=== PATIENT | female | born 1930 | race African-American/Black ===

== ENCOUNTER 2017-01-07 16:07 | Observation (INO) | payer MEDICARE, OTHER ==
[~2017-01-07] VITALS: Ht 167.6 cm; Wt 56.0 kg
[~2017-01-07 16:07] MED LIST: ATOR1TAB18 PO; BENA25CA2 PO; COMB0.2S EACH EYE; DORZ2SOL EACH EYE; LISI20TA PO; LUMI0.01 EACH EYE; NAME10TA PO; NIAC50TA4 PO; OMEP20TA PO; RIVA4.6T T-DERMAL; ZETI10TA5 PO
[2017-01-07 16:19] VITALS: BP 181/79; PULSE 98; RESP 17; TEMP 97.8; O2SAT 100
[2017-01-07 16:23] VITALS: PULSE 98; RESP 17; O2SAT 99
[2017-01-07] MEDS ORDERED: SODIUM CHLORIDE 0.9% FLUSH 5 ML FLUSH IVF PRN (16:30)
[2017-01-07] MEDS ORDERED: SODIUM CHLORID 0.9% 500 ML INJ 500 ML IV ONE (16:30)
[2017-01-07] MEDS ORDERED: CLON0.5T PO (16:49)
--- NOTE | 2017-01-07 17:10 | RADRPT ---
EXAM DATE/TIME: 01/07/2017 16:41 [facility] COMPARISON: No previous studies available for comparison. INDICATIONS : Evaluate for stroke,syncopal episode. RADIATION DOSE: 56.78 CTDIvol (mGy) MEDICAL HISTORY : Alzheimer's Hypertension. SURGICAL HISTORY : Appendectomy. Cholecystectomy.Lumpectomy ENCOUNTER: Initial ACUITY: 1 day PAIN SCALE: 0/10 LOCATION: cranial TECHNIQUE: Multiple contiguous axial images were obtained of the head. Using automated exposure control and adj ustment of the mA and/or kV according to patient size, radiation dose was kept as low as reasonably a chievable to obtain optimal diagnostic quality images. FINDINGS: CEREBRUM: The ventricles are normal for age. No evidence of midline shift, mass lesion, hemorrhage or acute in farction. No extra-axial fluid collections are seen. POSTERIOR FOSSA: The cerebellum and brainstem are intact. The 4th ventricle is midline. The cerebellopontine angle i s unremarkable. EXTRACRANIAL: The visualized portion of the orbits is intact. SKULL: The calvaria is intact. No evidence of skull fracture. CONCLUSION: Negative noncontrast head CT. Juno King MD on January 07, 2017 at 17:08 Board Certified Radiologist. This report was verified electronically.
[2017-01-07 17:29] LABS: AUTOMATED NEUTROPHIL # 3.5 TH/MM3 (1.8-7.7); BASOPHIL # 0.1 TH/MM3 (0-0.2); BASOPHIL % 1.2 % (0.0-2.0); EOSINOPHIL # 0.1 TH/MM3 (0-0.4); EOSINOPHIL % 1.1 % (0.0-4.0); HEMATOCRIT 31.3 % (35.0-46.0); HEMO FLAGS DIFF FINAL; LYMPH % 32.5 % (9.0-44.0); LYMPHOCYTE # 1.9 TH/MM3 (1.0-4.8); MEAN CELL VOLUME 88.4 FL (80.0-100.0); MEAN CORPUSCULAR HEMOGLOBIN 29.7 PG (27.0-34.0); MEAN CORPUSCULAR HGB CONC 33.6 % (32.0-36.0); NEUT % 58.2 % (16.0-70.0); PLATELET COUNT 375 TH/MM3 (150-450); RED BLOOD COUNT 3.53 MIL/MM3 (4.00-5.30); RED CELL DISTRIBUTION WIDTH 15.1 % (11.6-17.2)
[2017-01-07 17:48] LABS: INTERNATIONAL NORMALIZED RATIO 1.1 RATIO; PROTHROMBIN TIME - PATIENT 11.8 SEC (9.8-11.6)
[2017-01-07 18:04] LABS: ANION GAP 14 MEQ/L (5-15); BICARBONATE 24.1 MEQ/L (21.0-32.0); BLOOD UREA NITROGEN 9 MG/DL (7-18); CHLORIDE 98 MEQ/L (98-107); CREATINE KINASE 119 U/L (26-192); GLOMERULAR FILTRATION RATE 77 ML/MIN (>89); SODIUM (NA) 136 MEQ/L (136-145)
[2017-01-07 18:06] LABS: POTASSIUM 3.4 MEQ/L (3.5-5.1)
--- NOTE | 2017-01-07 18:11 | PD ---
HPI Chief Complaint: Syncope/Near-Syncope Time Seen by Provider: 16:22 Travel History International Travel<30 days: No Contact w/Intl Traveler<30days: No Traveled to known affect area: No History of Present Illness HPI 86-year-old female came to the emergency room with history of a syncopal episode at a supermarket. Patient says that she was picking up something and she does not remember what happened. However the bystanders witnessed this found her unconscious on the ground and called 911. Currently she is not complaining of anything and says she feels okay. Vital signs are stable. Denies of any nausea or vomiting. Denies of any chest pain or headache. PFSH Past Medical History Narrative Medical List of her past medical, surgical, social and family history is reviewed from the nursing note. Anxiety: Yes Cancer: No Cardiovascular Problems: Yes High Cholesterol: Yes Diabetes: No Diminished Hearing: Yes Endocrine: No Gastrointestinal Disorders: Yes (ACID REFLUX) Genitourinary: No Hiatal Hernia: No Hypertension: Yes Immune Disorder: No Medical other: Yes (ELEVATED CHOLESTEROL) Musculoskeletal: No Psychiatric: Yes (MILD DEPRESSION, EARLY ALZHIMERS ) Respiratory: No Thyroid Disease: No Tetanus Vaccination: < 5 Years Influenza Vaccination: Yes ?: Not Past Surgical History AICD: No Body Medical Devices: NONE Cardiac Surgery: No Cholecystectomy: Yes Ear Surgery: No Endocrine Surgery: No Eye Surgery: No Gynecologic Surgery: Yes (HYSTERECTOMY ) Hysterectomy: Yes Joint Replacement: No Oral Surgery: No Pacemaker: No Thoracic Surgery: Yes (LUMPECTOMY (BENIGN) OF THE LEFT BREAST) Other Surgery: Yes Social History Alcohol Use: No Tobacco Use: No Substance Use: No Allergies-Medications (Allergen,Severity, Reaction): Coded Allergies: No Known Allergies (Verified , 09/08/16) Comments No known drug allergies. Reported Meds & Prescriptions Reported Meds & Active Scripts Active Reported Clonazepam 0.5 Mg Tab 0.5 Mg PO HS Dorzolamide Opth Drops (Dorzolamide HCl) 2% Soln 1 Drop EACH EYE BID Lumigan Opth Drops (Bimatoprost) 0.01% Soln 1 Drop EACH EYE HS Combigan Opth Drops (Brimonidine-Timolol Opth Drops) 0.2-0.5% Soln 1 Drop EACH EYE BID Exelon Patch (Rivastigmine) 4.6 mg/24 hr Patch 1 Patch T-DERMAL DAILY Niacin 50 Mg Tab 50 Mg PO DAILY Lisinopril-Hctz 20-12.5 Mg Tab 1 Tab PO DAILY Atorvastatin (Atorvastatin Calcium) 80 Mg Tab 80 Mg PO HS Namenda (Memantine) 10 Mg Tab 20 Mg PO DAILY Zetia (Ezetimibe) 10 Mg Tab 10 Mg PO DAILY Narrative Medication List of home medications reviewed from the nursing note. Review of Systems Except as stated in HPI: all other systems reviewed are Neg Physical Exam Narrative GENERAL: Awake, alert, elderly, frail SKIN: Warm and dry. HEAD: Atraumatic. Normocephalic. EYES: Pupils equal and round. No scleral icterus. No injection or drainage. ENT: No nasal bleeding or discharge. Mucous membranes pink and moist. NECK: Trachea midline. No JVD. CARDIOVASCULAR: Regular rate and rhythm. No murmur appreciated. RESPIRATORY: No accessory muscle use. Clear to auscultation. Breath sounds equal bilaterally. GASTROINTESTINAL: Abdomen soft, non-tender, nondistended. Hepatic and splenic margins not palpable. MUSCULOSKELETAL: No obvious deformities. No clubbing. No cyanosis. No edema. NEUROLOGICAL: Awake and alert. No obvious cranial nerve deficits. Motor grossly within normal limits. Normal speech. PSYCHIATRIC: Appropriate mood and affect; insight and judgment normal. Data Data Last Documented VS Vital Signs Date Time Temp Pulse Resp B/P Pulse Ox O2 Delivery O2 Flow Rate FiO2 01/07/17 18:15 96 17 156/80 99 Room Air 01/07/17 16:19 97.8 Orders Electrocardiogram (01/07/17 16:22) Prothrombin Time / Inr (Pt) (01/07/17 16:22) Complete Blood Count With Diff (01/07/17 16:22) Basic Metabolic Panel (Bmp) (01/07/17 16:22) Creatine Kinase (Cpk) (01/07/17 16:22) Troponin I (01/07/17 16:22) Urinalysis - C+S If Indicated (01/07/17 16:22) Ct Brain W/O Iv Contrast(Rout) (01/07/17 16:22) Ecg Monitoring (01/07/17 16:22) Iv Access Insert/Monitor (01/07/17 16:22) Oximetry (01/07/17 16:22) Sodium Chloride 0.9% Flush (Ns Flush) (01/07/17 16:30) Type And Screen (01/07/17 16:22) Sodium Chlorid 0.9% 500 Ml Inj (Ns 500 M (01/07/17 16:30) Potassium Chloride Eff (K-Lyte Cl Eff) (01/07/17 18:15) Admit Order (Ed Use Only) (01/07/17 18:59) Labs Laboratory Tests Test 01/07/17 16:40 White Blood Count 6.0 TH/MM3 Red Blood Count 3.53 MIL/MM3 Hemoglobin 10.5 GM/DL Hematocrit 31.3 % Mean Corpuscular Volume 88.4 FL Mean Corpuscular Hemoglobin 29.7 PG Mean Corpuscular Hemoglobin 33.6 % Concent Red Cell Distribution Width 15.1 % Platelet Count 375 TH/MM3 Mean Platelet Volume 9.7 FL Neutrophils (%) (Auto) 58.2 % Lymphocytes (%) (Auto) 32.5 % Monocytes (%) (Auto) 7.0 % Eosinophils (%) (Auto) 1.1 % Basophils (%) (Auto) 1.2 % Neutrophils # (Auto) 3.5 TH/MM3 Lymphocytes # (Auto) 1.9 TH/MM3 Monocytes # (Auto) 0.4 TH/MM3 Eosinophils # (Auto) 0.1 TH/MM3 Basophils # (Auto) 0.1 TH/MM3 CBC Comment DIFF FINAL Differential Comment Prothrombin Time 11.8 SEC Prothromb Time International 1.1 RATIO Ratio Sodium Level 136 MEQ/L Potassium Level 3.4 MEQ/L Chloride Level 98 MEQ/L Carbon Dioxide Level 24.1 MEQ/L Anion Gap 14 MEQ/L Blood Urea Nitrogen 9 MG/DL Creatinine 0.85 MG/DL Estimat Glomerular Filtration 77 ML/MIN Rate Random Glucose 90 MG/DL Calcium Level 8.7 MG/DL Total Creatine Kinase 119 U/L Troponin I LESS THAN 0.02 NG/ML Blood Type B POSITIVE Antibody Screen NEGATIVE Blood Bank Comment MDM Medical Decision Making Medical Screen Exam Complete: Yes Emergency Medical Condition: Yes Medical Record Reviewed: Yes Interpretation(s) Twelve-lead EKG was reviewed by me. Normal sinus rhythm, left axis deviation, nonspecific ST-T wave changes. Heart rate of 97 bpm. Differential Diagnosis Syncope, ACS, cardiac arrhythmia Narrative Course 6:10 PM blood test results are back. Her potassium is slightly low. I have ordered for placement. Given the fact that she is 86 years old and had a syncopal episode without any warning I would like to admit her to rule out any ominous arrhythmias. Procedures EKG Prior to Arrival: No Diagnosis Primary Impression: Syncope Qualified Code: R55 - Syncope, unspecified syncope type Admitting Information Admitting Physician Requests: Observation Emilie Campbell MD Jan 07, 2017 18:11
[2017-01-07 18:15] VITALS: BP 156/80; PULSE 96; RESP 17; O2SAT 99
[2017-01-07] MEDS ORDERED: POTASSIUM CHLORIDE 25 MEQ EFFERVESCENT TAB PO ONE (18:15)
[2017-01-07 19:08] VITALS: BP 160/83; PULSE 106; RESP 18; TEMP 97.9; O2SAT 97
[2017-01-07 19:30] LABS: BLOOD, URINE NEG (NEG); GLUCOSE,URINE NEG (NEG); KETONE, URINE 10 mg/dL (NEG); NITRITE,URINE NEG (NEG); PH, URINE 6.5 (5.0-8.5); URINE COLOR LIGHT-YELLOW (YELLW/STRAW)
[2017-01-07] MEDS ORDERED: NIACIN 50 MG PO SCH (19:30)
[2017-01-07 19:44] LABS: COMMENT (UR) CATH-CULT NOT IND; CULTURE IF INDICATED CATH CULTURE NOT IND
[2017-01-07] MEDS: EZETIMIBE 10 MG TAB PO SCH (20:26)
[2017-01-07] MEDS: ATORVASTATIN 80 MG TAB PO SCH (20:26)
[2017-01-07] MEDS: MEMANTINE HCL 10 MG TAB PO SCH (20:27)
[2017-01-07] MEDS: RIVASTIGMINE 4.6 MG/24 HOUR PATCH T-DERMAL SCH (20:28)
[2017-01-07] MEDS: clonazePAM 0.5 MG TAB PO SCH (20:29)
[2017-01-07] MEDS: LATANOPROST 0.005% OPHT SOLN 2.5 ML BTL EACH EYE SCH (20:29)
[2017-01-07] MEDS: DORZOLAMIDE 2% OPTH SOLN 200 DROP/10 ML BTLO EACH EYE SCH (20:29)
[2017-01-07] MEDS ORDERED: PT OWN (Brimonidine-Timolol Opth Drops (Combigan Opth Drops) EACH EYE SCH (21:00)
[2017-01-07 22:11] VITALS: BP 170/81; PULSE 100; RESP 20; TEMP 97.9; O2SAT 98
--- NOTE | 2017-01-07 22:57 | RADRPT ---
EXAM DATE/TIME: 01/07/2017 20:58 [facility] COMPARISON: No previous studies available for comparison. INDICATIONS : Syncope. MEDICAL HISTORY : Hypercholesterolemia. Hypertension. Bilateral glaucoma. Left macular degeneration. Dementia. Hyperl ipidemia. Depression. Anxiety. Benign breast lump. SURGICAL HISTORY : Hysterectomy. Cholecystectomy. Appendectomy. Left breast lumpectomy. Bilateral cataract removal. ENCOUNTER: Initial ACUITY: 1 day PAIN SCORE: 0/10 LOCATION: Bilateral neck PEAK SYSTOLIC VELOCITIES (cm/sec): ICA/CCA RATIO: Right: 1.2 Left: 2.0 ICA: Right: 100 Left: 132 CCA: Right: 82 Left: 68 ECA: Right: 51 Left: 46 VERTEBRAL: Right: 49 antegrade Left: 45 antegrade Elevated flow velocities and ICA/CCA ratios have been found to correlate with increased degrees of vessel stenosis, calculated as percentage of diameter relative to a normal segment of distal ICA/CCA FINDINGS: RIGHT CAROTID: Very mild plaque seen in the bulb and proximal internal carotid artery. LEFT CAROTID: Very mild plaque seen of the bulb and proximal internal carotid artery. VERTEBRAL ARTERIES: Antegrade flow is seen in both vertebral arteries. MISCELLANEOUS: None. CONCLUSION: Minimal atherosclerotic plaque of both carotid bifurcations. No hemodynamically significant narrowing . There is nonhemodynamically acceleration of flow in the distal left internal carotid artery which a ppears to be on the basis of tortuosity, not stenosis or plaque. Juno King MD on January 07, 2017 at 22:54 Board Certified Radiologist. This report was verified electronically.
[2017-01-07 23:34] VITALS: BP 107/53; PULSE 88; RESP 20; TEMP 97.6; O2SAT 97
[2017-01-08] VITALS (8 sets, daily range): BP systolic 82–134; BP diastolic 43–65; PULSE 96–107; RESP 16–21; TEMP 98–98.8; O2SAT 95–100
[2017-01-08 05:25] LABS: HEMATOCRIT 29.3 % (35.0-46.0); MEAN CELL VOLUME 88.3 FL (80.0-100.0); MEAN CORPUSCULAR HEMOGLOBIN 29.4 PG (27.0-34.0); MEAN CORPUSCULAR HGB CONC 33.3 % (32.0-36.0); PLATELET COUNT 330 TH/MM3 (150-450); RED BLOOD COUNT 3.32 MIL/MM3 (4.00-5.30); RED CELL DISTRIBUTION WIDTH 15.1 % (11.6-17.2); REVIEW FLAG FINAL
[2017-01-08 05:55] LABS: BICARBONATE 26.5 MEQ/L (21.0-32.0); FREE T4 1.1 NG/DL (0.76-1.46); HDL CHOLESTEROL 69.4 MG/DL (40.0-60.0)
--- NOTE | 2017-01-08 08:02 | HHI.HP ---
[facility] Primary Care Physician Evans Johns M.D. Admission Diagnosis syncope Diagnoses: Travel History International Travel<30 Days: No Contact w/Intl Traveler <30 Da: No Traveled to Known Affected Are: No Past Family Social History Allergies: Coded Allergies: No Known Allergies (Verified , 09/08/16) Physical Exam Vital Signs Vital Signs Date Time Temp Pulse Resp B/P Pulse Ox O2 Delivery O2 Flow Rate FiO2 01/08/17 03:44 98.0 100 20 115/56 96 01/07/17 23:34 97.6 88 20 107/53 97 01/07/17 22:11 97.9 100 20 170/81 98 01/07/17 19:08 97.9 106 18 160/83 97 Room Air 01/07/17 18:15 96 17 156/80 99 Room Air 01/07/17 16:25 98 17 99 Room Air 01/07/17 16:23 98 17 99 Room Air 01/07/17 16:19 97.8 98 17 181/79 100 Laboratory Laboratory Tests Test 01/07/17 01/07/17 01/07/17 01/08/17 16:40 19:08 21:40 03:39 White Blood Count 6.0 7.0 Red Blood Count 3.53 3.32 Hemoglobin 10.5 9.7 Hematocrit 31.3 29.3 Mean Corpuscular Volume 88.4 88.3 Mean Corpuscular Hemoglobin 29.7 29.4 Mean Corpuscular Hemoglobin 33.6 33.3 Concent Red Cell Distribution Width 15.1 15.1 Platelet Count 375 330 Mean Platelet Volume 9.7 8.7 Neutrophils (%) (Auto) 58.2 Lymphocytes (%) (Auto) 32.5 Monocytes (%) (Auto) 7.0 Eosinophils (%) (Auto) 1.1 Basophils (%) (Auto) 1.2 Neutrophils # (Auto) 3.5 Lymphocytes # (Auto) 1.9 Monocytes # (Auto) 0.4 Eosinophils # (Auto) 0.1 Basophils # (Auto) 0.1 CBC Comment DIFF FINAL Differential Comment Prothrombin Time 11.8 Prothromb Time International 1.1 Ratio Sodium Level 136 139 Potassium Level 3.4 3.0 Chloride Level 98 100 Carbon Dioxide Level 24.1 26.5 Anion Gap 14 13 Blood Urea Nitrogen 9 8 Creatinine 0.85 0.82 Estimat Glomerular Filtration 77 80 Rate Random Glucose 90 81 Calcium Level 8.7 8.5 Total Creatine Kinase 119 Troponin I LESS THAN 0.02 LESS THAN 0.02 Blood Type B POSITIVE Antibody Screen NEGATIVE Blood Bank Comment Urine Color LIGHT-YELLOW Urine Turbidity CLEAR Urine pH 6.5 Urine Specific [place] 1.005 Urine Protein NEG Urine Glucose (UA) NEG Urine Ketones 10 Urine Occult Blood NEG Urine Nitrite NEG Urine Bilirubin NEG Urine Urobilinogen LESS THAN 2.0 Urine Leukocyte Esterase NEG Urine RBC LESS THAN 1 Urine WBC 1 Microscopic Urinalysis Comment CATH-CULT NOT IND Triglycerides Level 54 Cholesterol Level 165 LDL Cholesterol 85 HDL Cholesterol 69.4 Cholesterol/HDL Ratio 2.37 Free Thyroxine 1.10 Thyroid Stimulating Hormone 4.130 3rd Gen Result Diagram: 01/08/17 0339 01/08/17 0339 Assessment and Plan Assessment and Plan dictated note, [id number] Added Heparin for dvt prop, pepcid for PUD prop. K+ supplement Svetlana Donald am Jan 08, 2017 08:02
[2017-01-08] MEDS: FAMOTIDINE 20 MG TAB PO SCH ×2 (08:47→21:05)
[2017-01-08] MEDS: DORZOLAMIDE 2% OPTH SOLN 200 DROP/10 ML BTLO EACH EYE SCH ×2 (08:47→21:04)
[2017-01-08] MEDS: LISINOPRIL 20 MG TAB PO SCH (08:47)
[2017-01-08] MEDS: EZETIMIBE 10 MG TAB PO SCH (08:47)
[2017-01-08] MEDS: MEMANTINE HCL 10 MG TAB PO SCH (08:47)
[2017-01-08] MEDS: RIVASTIGMINE 4.6 MG/24 HOUR PATCH T-DERMAL SCH (08:48)
[2017-01-08] MEDS: HEPARIN SODIUM - SQ 10,000 UNITS/ML VIAL SQ SCH ×2 (08:48→21:05)
[2017-01-08] MEDS: HYDROCHLOROTHIAZIDE 12.5 MG CAP PO SCH (08:48)
[2017-01-08] MEDS: POTASSIUM CHLORIDE 25 MEQ EFFERVESCENT TAB PO SCH ×3 (08:52→14:56)
--- NOTE | 2017-01-08 14:36 | MB ---
cc: JOSE MIGUEL PATEL M.D. DATE OF CONSULTATION: 01/08/2017. HISTORY OF PRESENT ILLNESS: She is an 86-year-old seen in neurological consultation. She had a syncopal episode yesterday. The patient provides a good history. She went to [employer] and did her shopping and on her way out of the building, she had a syncopal episode. She had no warning whatsoever. She woke up on the floor with people around her. She thinks she was out for a short period of time. There was no incontinence. No reported seizure activity. The patient describes that the paramedics were called and she was brought to the hospital. The patient has no prior history of syncopal episodes. No neurologic history. MEDICATIONS: 1. She takes a small dose of clonazepam. 2. Eye drops. 3. Lisinopril. 4. Atorvastatin. 5. Namenda 10 milligrams twice a day. 6. Zetia. NEUROLOGICAL EXAMINATION: She is alert, pleasant and oriented. I thought her mentation was pretty adequate on the bedside exam. She provides history very clearly. Ocular movements and visual yoder full. She is strong in all four limbs on the bedside exam. Reflexes diminished, trace responses throughout. Plantar response flexor. EKGS: EKG is reported as unremarkable. IMAGING STUDIES: CT brain was unremarkable as well as carotid ultrasound. LABORATORY DATA: CBC with white count 7.0, hemoglobin 9.7, platelets 330,000. Chemistry with potassium 3.0. Sodium normal. Yesterday, potassium was 3.4. Glucose yesterday 90 and today 81. ASSESSMENT: Syncopal episode. Possible seizure, do not know other clear indication for this. RECOMMENDATIONS/PLAN: 1. I will also add an EEG in her workup. 2. After EEG, if unremarkable, then no other neurologic intervention but would like to see her in followup in couple of weeks. 3. Depending upon her clinical course, we will arrange for MRI of brain, et cetera. Thank you for asking us to assist in her care. Jose Miguel Patel MD [facility] /11:40 AM /1:30 PM
--- NOTE | 2017-01-08 19:32 | EKG ---
Date Performed: 01/07/2017 Time Performed: 16:40:18 PTAGE: 86 years EKG: Sinus rhythm NONSPECIFIC T-WAVE ABNORMALITY POOR INITIAL ANTERIOR FORCES-PROBABLE NORMAL BARIANT Compared to prio r tracing no significant change BORDERLINE ECG PREVIOUS TRACING : 07/25/2014 13.37 DOCTOR: Kaleb Razo Interpretating Date/Time 01/08/2017 19:30:53
[2017-01-08] MEDS: LATANOPROST 0.005% OPHT SOLN 2.5 ML BTL EACH EYE SCH (21:04)
[2017-01-08] MEDS: clonazePAM 0.5 MG TAB PO SCH (21:05)
[2017-01-08] MEDS: ATORVASTATIN 80 MG TAB PO SCH (21:05)
[2017-01-09 00:40] VITALS: BP 94/54; PULSE 68; RESP 18; TEMP 98.3; O2SAT 98
[2017-01-09 04:44] VITALS: BP 94/49; PULSE 68; RESP 18; TEMP 97.8; O2SAT 97
[2017-01-09 05:37] LABS: BICARBONATE 28.5 MEQ/L (21.0-32.0); POTASSIUM 3.6 MEQ/L (3.5-5.1)
[2017-01-09 07:46] VITALS: BP 113/56; PULSE 97; RESP 17; TEMP 98.6; O2SAT 100
[2017-01-09] MEDS: DORZOLAMIDE 2% OPTH SOLN 200 DROP/10 ML BTLO EACH EYE SCH (08:33)
[2017-01-09] MEDS: EZETIMIBE 10 MG TAB PO SCH (08:34)
[2017-01-09] MEDS: FAMOTIDINE 20 MG TAB PO SCH (08:34)
[2017-01-09] MEDS: HEPARIN SODIUM - SQ 10,000 UNITS/ML VIAL SQ SCH (08:34)
[2017-01-09] MEDS: MEMANTINE HCL 10 MG TAB PO SCH (08:34)
--- NOTE | 2017-01-09 08:34 | HHI.PR ---
Subjective Remarks resting well alert, responds, oriented no acute pain no SOB appetite fair/good (Svetlana Mercedes) Objective Objective Results - Vital Signs Date Time Temp Pulse Resp B/P Pulse Ox O2 Delivery O2 Flow Rate FiO2 01/09/17 07:46 98.6 97 17 113/56 100 01/09/17 04:44 97.8 68 18 94/49 97 01/09/17 00:40 98.3 68 18 94/54 98 01/08/17 22:25 96 01/08/17 19:45 98.8 104 21 109/53 98 01/08/17 18:01 101 18 92/51 100 01/08/17 16:04 107 16 82/43 95 01/08/17 12:01 100 01/08/17 11:24 98.0 103 20 119/58 100 (Svetlana Mercedes) Result Diagram: 01/08/17 0339 01/09/17 0448 ROS General: Weakness, Other (10 point ROS done, postives include generalized weakness, otherwise unremarkable ) (Svetlana Mercedes) Physical Exam Physical Exam PHYSICAL EXAMINATION GENERAL: This is a well-developed, slim female who appears to be in no acute distress. She is alert and awake HEAD: Normocephalic without any lesion or mass noted. Facial features appear symmetric. OROPHARYNGEAL: Oropharynx without erythema or edema. NECK: Supple. No nuchal rigidity or lymphadenopathy. Trachea midline without deviation. CARDIAC: Regular rhythm, regular rate, S1 and S2 are heard. Murmur none no gallops or rubs. LUNGS: Clear to auscultation bilaterally. no wheeze, no rhonchi or no rale. No use of accessory muscles on inspiration or expiration. ABDOMEN: Soft, nontender, no organomegaly or masses. Bowel sounds are heard in all four quadrants. No rebound. No guarding. EXTREMITIES: no edema. Pulses equal bilateral. no cyanosis. NEUROLOGICAL: Patient mood and affect appropriate. No focal deficit, oriented to situation SKIN:Warm and moist Objective Remarks Im felling ok . No dizziness noted. (Svetlana Mercedes) A/P Assessment and Plan syncope, with loss of consciousness, R/O TIA/ Hypokalemia Dementia , mild anemia macular degeneration, hx Plan: monitor vital signs, including orthostatic checks today. reort and chart Neuro consult done appreciate his input. Plan at this point is to do an EEG. If negative exam, patient can follow-up in the office as an outpatient. Potassium replacement done, with K+ at 3.6. resolved, monitor. Will recheck BMP in the morning. Home medications reconciled as warranted Labs reviewed anemia appears to be related to chronic disease. Will monitor her any acute changes and hemoglobin. Currently 9.7 History of macular degeneration stable with meds. Monitor any acute needs. (Svetlana Mercedes) Assessment and Plan PT IS SEEN & EXAMINED CHART REVIEWED D/W PT D/W SVETLANA FEELS WELL NO n/V/ABD PAIN , NO MELENA OR BRBPR NO CP OR SOB NO MORE DIZZINESS READY TOGO HOME EEG NOTED medically stable for d/c dc home f/u pcp mild anemia , repeat cbc/ bmp in1 to 2 wk by pcp see orders (Partha Parker MD) Svetlana Mercedes Jan 09, 2017 08:34 Partha Parker MD Jan 09, 2017 16:26
[2017-01-09] MEDS: RIVASTIGMINE 4.6 MG/24 HOUR PATCH T-DERMAL SCH (08:35)
[2017-01-09] MEDS: LISINOPRIL 20 MG TAB PO SCH (08:40)
[2017-01-09] MEDS: HYDROCHLOROTHIAZIDE 12.5 MG CAP PO SCH (08:40)
[2017-01-09 10:32] VITALS: PULSE 91
--- NOTE | 2017-01-09 10:34 | MH ---
DATE OF ADMISSION: 01/07/2017 ADMITTING PHYSICIAN HAILEY ARREGUIN MD CHIEF COMPLAINT: Syncope/near syncope. HISTORY OF PRESENT ILLNESS: The patient is a very pleasant 86-year-old -Cypriot female who came to the emergency room with an episode of syncope at a supermarket. Per the patient, she had gone shopping today to [employer] and she was picking up something and does not remember what happened after that. However, bystanders witnessed this and found her unconscious on the ground and called 9-1-1. Currently she is not complaining of any headache. No blurring of vision. No chest pain. No shortness of breath. No palpitations. No bladder or bowel incontinence. No weakness. The patient denies any fever. No nausea or vomiting. Denies any feelings of weakness. PAST MEDICAL HISTORY: 1. Anxiety. 2. Hyperlipidemia. 3. Gastroesophageal reflux disease (GERD). 4. Hypertension. 5. Dementia. 6. Glaucoma. PAST SURGICAL HISTORY: 1. Hysterectomy. 2. Cholecystectomy. 3. Bilateral cataract surgery. 4. Removal of dentures. SOCIAL HISTORY: The patient is , lives alone, quit smoking more than 20 years ago. Has one daughter who lives in [place] but not with her. Denies any alcohol or illicit drug use. FAMILY HISTORY: Uterine cancer in the mother. Prostate cancer in brother. ALLERGIES: NO KNOWN ALLERGIES. CURRENT MEDICATIONS: 1. Clonazepam. 2. Dorzolamide Ophthalmic Drops. 3. Lumigan Opthalmic Drops. 4. Combigan Ophthalmic Drops. 5. Exelon Patch. 6. Niacin. 7. Lisinopril/hydrochlorothiazide 20/12.5 milligrams p.o. daily. 8. Atorvastatin 80 p.o. at bedtime. 9. Namenda 20 milligrams p.o. daily. 10. Zetia 10 milligrams p.o. daily. REVIEW OF SYSTEMS: GENERAL: Denies any weakness. HEAD, EYES, EARS, NOSE, THROAT: Denies any headache, eye or ear pain. Denies any throat pain. CARDIOVASCULAR: Denies any chest pain or palpitations. RESPIRATORY: Denies any shortness of breath or wheezing. GASTROINTESTINAL: Denies any abdominal pain, nausea or vomiting, or diarrhea. MUSCULOSKELETAL: Denies any joint pain. NEUROLOGICAL: Episode of syncope. The patient denies any seizures or focal deficits. PSYCHIATRIC: Does have history of anxiety and dementia. Denies any suicidal ideation or homicidal intention. PHYSICAL EXAMINATION: VITAL SIGNS: At the time of examination, 160/83, pulse is 96, respirations are 18, pulse oximetry is 97% on room air. Temperature is 97.8 oral. GENERAL: The patient is awake, alert elderly frail-looking. SKIN: Warm and dry . HEAD: Normocephalic and atraumatic. EYES: Pupils equal, round and reactive to light. No scleral icterus. No injection or drainage. ENT: No nasal bleed or discharge. The mucous membranes are pink and moist. NECK: Trachea is midline. No jugular venous distention. No carotid bruits. CARDIOVASCULAR: Regular rate and rhythm. No murmur appreciated. RESPIRATORY: Clear to auscultation bilaterally. Breath sounds are equal bilaterally. No accessory muscle use. GASTROINTESTINAL: The abdomen is soft, nontender and nondistended. Hepatic and splenic margins are not palpable. MUSCULOSKELETAL: No obvious deformities. No clubbing. No cyanosis. No edema. NEUROLOGICAL: Alert and awake. No focal deficits. Cranial nerves II through XII are grossly intact. Normal speech. PSYCHIATRIC: Appropriate mood and affect, insight and judgment normal. LABORATORY DATA: Hemoglobin 10.5, hematocrit 31.3, platelets are 375,000. WBC is 6.0. BUN is 9, creatinine 0.85, carbon dioxide is 24.1, potassium 3.4, chloride 98. First set of troponin is less than 0.02. PT is 11.8. INR is 1.1. IMAGING STUDIES: Head CT: No acute bleed or infarct. DIAGNOSTIC IMPRESSION: 1. Syncope. 2. Hypertension. 3. Hyperlipidemia. 4. Dementia. 5. Gastroesophageal reflux disease (GERD). 6. History of glaucoma. PLAN: 1. Will admit the patient under observation. 2. Will do continuous telemetry monitoring. 3. Will check three sets of cardiac enzymes. 4. Will request CT of the head WO. 5. Will also request a 2-D echocardiogram and ultrasound of the carotids. 6. Will request a neurology consult. 7. Will continue the home medications as appropriate. 8. Will monitor the patient closely during the hospital stay. Further management depends upon the hospital course. Hailey Arreguin MD [facility]
--- NOTE | 2017-01-09 10:34 | MH ---
DATE OF ADMISSION: 01/07/2017 ADMITTING PHYSICIAN HAILEY ARREGUIN MD REASON FOR ADMISSION Syncopal episode. HISTORY OF PRESENT ILLNESS This is a pleasant 86-year-old black female who has been in her usual state of health. She drove up to the [employer] store that is up the street from her and went in to get some Aleve p.m. to help her rest. She came back out of the store and does not remember anything afterwards. When she woke up she realized she was in the emergency room. Bystanders according to the record found her laying on the ground unconscious and called 9--1. The patient denies any unusual events yesterday before going to the store. She states she did her light housework. The patient still does drive as noted. The patient denies any chest pain. No shortness of breath. No recent fever, no cough. No recent illness. She has not been taking any antibiotics or any new medicines for any reason. The patient denies any nausea, vomiting, diarrhea, constipation. She did take her usual medicines. The patient is currently alert, oriented, a fairly good historian for her history, answers questions appropriately. PAST MEDICAL HISTORY According to the patient and the record: 1. Hyperlipidemia. 2. Hard of hearing. 3. Gastroesophageal reflux disease. 4. Hypertension. 5. Anxiety. 6. Mild depression with early Alzheimer's. 7. Gallstones. PAST SURGICAL HISTORY 1. Cholecystectomy. 2. Hysterectomy. 3. Lumpectomy, benign for removal in her left breast. ALLERGIES None known. MEDICATIONS Reported: 1. Clonazepam. 2. Dorzolamide eyedrops. 3. Lumigan ophthalmic drops. 4. Combigan eyedrops. 5. Exelon patch. 6. Niacin. 7. Lisinopril/Hydrochlorothiazide combo. 8. Atorvastatin. 9. Namenda. 10. Zetia. SOCIAL HISTORY The patient lives alone but does have family that his close by and checks on her. Denies any use of alcohol, tobacco or illicit drug use. FAMILY HISTORY NA. REVIEW OF SYSTEMS A 10-point review was obtained. Positives noted in the HPI as well as the negatives. This includes a syncopal episode unwitnessed. The patient has no memory of what happened and does not remember anything until she got to the hospital. PHYSICAL EXAMINATION VITAL SIGNS: Temperature is 98, pulse is labile between 88-106, currently 100, respirations 20, blood pressure 115/56. When coming into the hospital it was 156/80 and the high has been 170/81, O2 sat 96 on room air. GENERAL: Thin, well-developed black female who looks to be her stated age, resting in the bed, alert, oriented and cooperative. SKIN: [place] mucous membranes. Warm and dry. No rashes, no skin breakdown noted. HEENT: Atraumatic, normocephalic. PERRLA. Cataract removal noted. No exudate. Tongue is slightly dry. NECK: Neck is thin, supple. HEART: Heart sounds S1-S2, regular rate and rhythm. Borderline tachycardic. She has no edema. Pulses are intact. PULMONARY: Lungs are clear to auscultation anteriorly and posteriorly with no wheezes, rales or rhonchi. GI: Abdomen is flat, soft, nontender, nondistended. Active bowel sounds in all four quads. MUSCULOSKELETAL: She moves all extremities with purpose. She can overcome resistance. 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 NEUROLOGIC: Neurologically she is alert, awake, a fairly good historian. Speech is clear. PSYCHIATRIC: Appropriate mood and affect. Judgment is normal. DIAGNOSTIC DATA Sodium 139, potassium 3.4 on admission, now 3, chloride 100, carbon dioxide 26.5, amnion gap 13, BUN 8, creatinine 0.82, GFR 80, random glucose 81, 90 on admission, calcium 8.5. Troponin x2 is less than 0.02, triglycerides 54, cholesterol 165, LDL 85, HDL 69.4, TSH 4.13, PT/INR is 1.1. WBC count 7, RBC 3.32, hemoglobin 9.7, hematocrit 29.3, platelet count 330. Urine is light yellow, clear, pH 6.5, specific gravity 1.005, protein negative, glucose negative, negative occult blood, nitrites and bilirubin. Urine esterase negative. Urobilinogen less than 2, ketones are 10. IMAGING STUDIES Shows CT of the head to be unremarkable and negative. Carotid ultrasound shows minimal atherosclerotic plaque in both carotid bifurcations, no hemodynamic significant narrowing, there is non-hemodynamically acceleration of the flow of the distal left internal artery which appears to be on the basis of tuberosity, not stenosis or plaque. 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 PLAN Our plan is to admit currently for observation. We will consult neurology for his expert opinion. 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 We will monitor her lab work. We will treat the patient's hypokalemia with potassium supplements p.o. and recheck labs in the morning. Reconcile the patient's medications. We will review and order more lab work related to the patient's thyroid, free T4 is pending. To my knowledge thepatient is full code, full aggressive care and we will support during the hospital stay. Dictated by: ELIER Magallon MD [facility]ALTH[facility]hislaine
--- NOTE | 2017-01-09 11:02 | HHI.PR ---
Review/Management Daily Summary 01/09 doing well occ mild confusion per RN eeg in progress, reviewed initial data and appears benign ok to d/c from neuro standpoint offer f/u in 2 weeks Subjective Subjective Comments No acute events reported No headache No chest pain No dyspnea Active Medications Current Medications Medications (Trade) Dose Ordered Sig/Avinash Route Start Time Stop Time Status Last Admin (NS Flush) 2 ml UNSCH PRN IVF 01/07/17 16:30 01/07/17 18:03 (Lipitor) 80 mg HS PO 01/07/17 21:00 01/08/17 21:05 (KlonoPIN) 0.5 mg HS PO 01/07/17 21:00 01/08/17 21:05 (Trusopt 2% Opth Soln) 1 drop BID EACH EYE 01/07/17 21:00 01/09/17 08:33 (Zetia) 10 mg DAILY PO 01/07/17 19:30 01/09/17 08:34 (Namenda) 20 mg DAILY PO 01/07/17 19:30 01/09/17 08:34 (Exelon 4.6 Mg Patch.24hr) 1 patch DAILY T-DERMAL 01/07/17 19:30 01/09/17 08:35 (Xalatan 0.005% Opth Soln) 1 drop HS EACH EYE 01/07/17 21:00 01/08/17 21:04 Patient Own Medication PT OWN MED: (Brimonidine-Timolol Opth DrBelgica.. BID EACH EYE 01/07/17 21:00 Hold (Prinivil) 20 mg DAILY PO 01/08/17 09:00 01/08/17 08:47 (Microzide) 12.5 mg DAILY PO 01/08/17 09:00 01/08/17 08:48 (Heparin Inj) 5,000 units Q12HR SQ 01/08/17 09:00 01/09/17 08:34 (Pepcid) 20 mg BID PO 01/08/17 09:00 01/09/17 08:34 Allergies Allergies Coded Allergies No Known Allergies (Ksreedyu16/10/16) Exam I&O / VS Vital Signs Date Time Temp Pulse Resp B/P Pulse Ox O2 Delivery O2 Flow Rate FiO2 01/09/17 10:32 91 01/09/17 07:46 98.6 97 17 113/56 100 01/09/17 04:44 97.8 68 18 94/49 97 01/09/17 00:40 98.3 68 18 94/54 98 01/08/17 22:25 96 01/08/17 19:45 98.8 104 21 109/53 98 01/08/17 18:01 101 18 92/51 100 01/08/17 16:04 107 16 82/43 95 01/08/17 12:01 100 01/08/17 11:24 98.0 103 20 119/58 100 Objective Radiology Results Last [address] 01/07/17 1622 Signed Impressions: Service Date/Time: Saturday, January 07, 2017 16:41 - CONCLUSION: Negative noncontrast head CT. Juno King MD Micro and Labs Laboratory Tests Test 01/09/17 04:48 Sodium Level 137 Potassium Level 3.6 Chloride Level 102 Carbon Dioxide Level 28.5 Anion Gap 7 Blood Urea Nitrogen 18 Creatinine 1.13 Estimat Glomerular Filtration 55 Rate Random Glucose 120 Calcium Level 8.2 Charity Souza MD Jan 09, 2017 11:02
[2017-01-09 11:16] VITALS: BP_SYST 127; BP_SYST 138; BP_SYST 139; BP_DIAS 63; BP_DIAS 65; BP_DIAS 68; PULSE 98; RESP 18; TEMP 98; O2SAT 100
--- NOTE | 2017-01-09 11:52 | EC ---
Study Study Date:01/09/2017 STUDY CONCLUSIONS SUMMARY - Left ventricle: The cavity size was normal. Wall thickness was normal. Systolic function was normal. The estimated ejection fraction was in the range of 55% to 60%. Wall motion was normal; there were no regional wall motion abnormalities. - Mitral valve: Mild regurgitation. Valve area by pressure half-time: 1.79cm^2. - Tricuspid valve: Mild regurgitation. - Pulmonary arteries: PA peak pressure: 39mm Hg (S). Impressions: No cardiac source of emboli was indentified. If LV function is below 40, please consider prescribing an ACEI or ARB or document rationale for non-use. PROCEDURE DATA STUDY STATUS: Elective. Procedure: Transthoracic echocardiography. Image quality was good. Scanning was performed from the parasternal, apical, and subcostal acoustic windows. Study completion: The patient tolerated the procedure well. Transthoracic echocardiography. M-mode, complete 2D, complete spectral Doppler, and color Doppler. Patient status: Inpatient. CARDIAC ANATOMY LEFT VENTRICLE: The cavity size was normal. Wall thickness was normal. Systolic function was normal. The estimated ejection fraction was in the range of 55% to 60%. Wall motion was normal; there were no regional wall motion abnormalities. AORTIC VALVE: Trileaflet; normal thickness leaflets. Doppler: Transvalvular velocity was within the normal range. There was no stenosis. No regurgitation. Mean gradient: 7mm Hg (S). Peak gradient: 14mm Hg (S). AORTA: Aortic root: The aortic root was normal in size. MITRAL VALVE: Structurally normal valve. Doppler: Transvalvular velocity was within the normal range. There was no evidence for stenosis. Mild regurgitation. Valve area by pressure half-time: 1.79cm^2. LEFT ATRIUM: The atrium was normal in size. RIGHT VENTRICLE: The cavity size was normal. Wall thickness was normal. PULMONIC VALVE: Doppler: Transvalvular velocity was within the normal range. There was no evidence for stenosis. No regurgitation. TRICUSPID VALVE: Structurally normal valve. Doppler: Transvalvular velocity was within the normal range. Mild regurgitation. PULMONARY ARTERY: The main pulmonary artery was normal-sized. Systolic pressure was within the normal range. RIGHT ATRIUM: The atrium was normal in size. PERICARDIUM: There was no pericardial effusion. SYSTEMIC VEINS: Inferior vena cava: The vessel was normal in size. BASIC MEASUREMENTS ADULT Normal Left ventricle LV internal dimension, ED, chordal level, *24 mm 43-52 PLAX LV internal dimension, ES, chordal level, *17 mm 23-38 PLAX Fractional shortening, chordal level, PLAX *29 % >29 LV posterior wall thickness, ED 7.26 mm IVS/LVPW ratio, ED *1.97 <1.3 Ventricular septum Septal thickness, ED 14.3 mm Aortic valve Leaflet separation 19 mm 15-26 Right ventricle RV internal dimension, ED, PLAX 27.7 mm 19-38 BASIC MEASUREMENTS ADULT Normal Aortic valve Leaflet separation 19 mm 15-26 Aorta Root diameter, ED 29 mm 20-37 Left atrium Anterior-posterior dimension, ES 31 mm 19-40 LA/aortic root ratio 1.07 DOPPLER MEASUREMENTS ADULT Normal Main pulmonary artery Pressure, S *39 mm Hg =30 Aortic valve Peak velocity, S 185 cm/s Mean velocity, S 118 cm/s VTI, S 17 cm Mean gradient, S 7 mm Hg Peak gradient, S 14 mm Hg Mitral valve Peak E-wave velocity 61.7 cm/s Peak A-wave velocity 99.7 cm/s Pressure half-time 123 ms Peak E/A ratio 0.6 Valve area, pressure half-time 1.79 cm^2 Tricuspid valve Regurgitant peak velocity 236 cm/s Peak RV-RA gradient, S 22 mm Hg Maximal regurgitant velocity 236 cm/s Systemic veins Estimated CVP 10 mm Hg Right ventricle RV pressure, S *39 mm Hg <30 LEGEND: Mean values are shown as u=mean value. Asterisk (*) padilla values outside specified normal range. Prepared and signed by Jose Franklin [id number]
--- NOTE | 2017-01-09 12:30 | MG ---
cc: JEFFREY SIN M.D. Lab No: [id number] Date: 01/09/2017 Age: 86 Sex: F INDICATION An 86-year-old woman with dementia. MEDICATIONS Heparin, Klonopin, Namenda. DESCRIPTION The recording shows diffuse beta rhythms and alpha rhythms. The recording overall is synchronous and symmetric. A small amount of 5 Hz diffuse slowing is seen over the midline head regions bilaterally briefly. No focal abnormality is noted. No seizure activity is seen. The patient appears to fall asleep with some sleep spindles. Hyperventilation is not performed. Photic stimulation is performed without significant posterior driving. IMPRESSION Essentially unremarkable awake and stage II sleep EEG. No evidence for a focal or diffuse abnormality. MD CELIA Ge/LENA /11:13 AM /11:25 AM
[2017-01-09 15:39] VITALS: BP 116/56; PULSE 100; RESP 20; TEMP 98.2; O2SAT 98
--- NOTE | 2017-01-15 18:23 | HHI.DS ---
Discharge Summary Admission Date Jan 07, 2017 at 19:00 Discharge Date: Jan 09, 2017 Admitting Diagnosis syncope (1) Syncope Imaging Last Impressions Head CT 01/07/17 1622 Signed Impressions: Service Date/Time: Saturday, January 07, 2017 16:41 - CONCLUSION: Negative noncontrast head CT. Juno King MD Carotid Artery Ultrasound 01/07/17 0000 Signed Impressions: Service Date/Time: Saturday, January 07, 2017 20:58 - CONCLUSION: Minimal atherosclerotic plaque of both carotid bifurcations. No hemodynamically significant narrowing. There is nonhemodynamically acceleration of flow in the distal left internal carotid artery which appears to be on the basis of tortuosity, not stenosis or plaque. Juno King MD Hospital Course The patient is a very pleasant 86-year-old -[place] female who came to the emergency room with an episode of syncope at a [employer]. Per the patient, she had gone shopping to [employer] and she was picking up something and does not remember what happened after that. However, bystanders witnessed this and found her unconscious on the ground and called 9-1-1. She was not complaining of any headache. No blurring of vision. No chest pain. No shortness of breath. No palpitations. No bladder or bowel incontinence. No weakness. The patient denies any fever. No nausea or vomiting. Denies any feelings of weakness. Patient was evaluated in the emergency room LABORATORY DATA: Hemoglobin 10.5, hematocrit 31.3, platelets are 375,000. WBC is 6.0. BUN is 9, creatinine 0.85, carbon dioxide is 24.1, potassium 3.4, chloride 98. First set of troponin is less than 0.02. PT is 11.8. INR is 1.1. IMAGING STUDIES: Head CT: No acute bleed or infarct. Was admitted with: 1. Syncope. 2. Hypertension. 3. Hyperlipidemia. 4. Dementia. 5. Gastroesophageal reflux disease (GERD). 6. History of glaucoma. During the course of the hospitalization, the following to place: Patient put on cardiac telemetry Cardiac enzymes were ordered CT of the head without contrast was ordered which was negative Carotid ultrasound was ordered which did not show any significant stenosis 2-D echo was ordered with results as noted above Is consulted for evaluation Neuro checks were ordered Neurology recommended further workup EEG was ordered which was negative Orthostatics were negative Patient was noted with some anemia, no active bleeding, likely secondary to chronic disease Patient was cleared for discharge by neurology Patient had no further syncopal episodes Patient was given lab slips to have after discharge with results to be sent to primary care physician Patient cleared for discharge, patient went home in stable condition Pt Condition on Discharge: Stable Discharge Disposition: Discharge Home Discharge Instructions DIET: Follow Instructions for: Heart Healthy Diet Fluid Restrictions: none Activities you can perform: Regular-No Restrictions Other Activity Instructions: fall precautions Follow up Referrals: Neurology - 3 Weeks PCP Follow-up - 1 Week Continued Medications: Atorvastatin (Atorvastatin) 80 Mg Tab 80 MG PO HS Cholesterol Management #30 Ref 0 TAB Bimatoprost Opth Drops (Lumigan Opth Drops) 0.01% Soln 1 DROP EACH EYE HS Intraocular Pressure #1 Ref 0 BOTTLE Brimonidine-Timolol Opth Drops (Combigan Opth Drops) 0.2-0.5% Soln 1 DROP EACH EYE BID Glaucoma Ref 0 BOTTLE Clonazepam (Clonazepam) 0.5 Mg Tab 0.5 MG PO HS SLEEP #60 Ref 0 TAB Dorzolamide Opth Drops (Dorzolamide Opth Drops) 2% Soln 1 DROP EACH EYE BID Glaucoma #1 Ref 0 BOTTLE Ezetimibe (Zetia) 10 Mg Tab 10 MG PO DAILY #30 Ref 0 TAB Lisinopril-Hctz (Lisinopril-Hctz) 20-12.5 Mg Tab 1 TAB PO DAILY Blood Pressure Management #30 Ref 0 TAB Memantine (Namenda) 10 Mg Tab 20 MG PO DAILY Alzheimer Disease #30 Ref 0 TAB Niacin (Niacin) 50 Mg Tab 50 MG PO DAILY Nutritional Supplement #30 Ref 0 TAB Rivastigmine Patch (Exelon Patch) 4.6 mg/24 hr Patch 1 PATCH T-DERMAL DAILY Dementia #30 Ref 0 PATCH Radha Thibodeaux Jan 15, 2017 18:23
== END 2017-01-09 18:56 | disposition home or self-care (01) ==
LOC: NEPE 16:07 → NEDA 19:00 → NEPGCP 22:08
PROVIDERS: ADMIT Family Medicine; ATTEND Family Medicine
DX: R55 Syncope and collapse (principal); F41.9 Anxiety disorder, unspecified; E78.5 Hyperlipidemia, unspecified; K21.9 Gastro-esophageal reflux disease without esophagitis; I10 Essential (primary) hypertension; H91.90 Unspecified hearing loss, unspecified ear; G30.9 Alzheimer's disease, unspecified; F02.80 Dementia in other diseases classified elsewhere, unspecified severity, without behavioral disturbance, psychotic disturbance, mood disturbance, and anxiety; H40.10X0 Unspecified open-angle glaucoma, stage unspecified; F32.9 Major depressive disorder, single episode, unspecified; D64.9 Anemia, unspecified; E87.6 Hypokalemia; R94.6 Abnormal results of thyroid function studies; E78.00 Pure hypercholesterolemia, unspecified; Z87.891 Personal history of nicotine dependence
CPT/HCPCS: 70450; 80048; 80061; 81001; 82550; 84439; 84443; 84484; 85025; 85027; 85610; 86850; 86900; 86901; 93005; 93306; 93880; 95819; 96360; 97163; 99285; G0378; G8987; G8988; J1644; J7040

== ENCOUNTER 2017-01-16 15:59 | Inpatient (IN) | payer MEDICARE, OTHER ==
[~2017-01-16] VITALS: Ht 157.5 cm; Wt 50.0 kg
[~2017-01-16 15:59] MED LIST changes: -BENA25CA2 PO; +CLON0.5T PO; -OMEP20TA PO
[2017-01-16 16:37] VITALS: BP 97/66; PULSE 88; RESP 18; TEMP 98
[2017-01-16] MEDS ORDERED: SODIUM CHLORID 0.9% 500 ML INJ 500 ML IV ONE (16:45)
[2017-01-16] MEDS ORDERED: SODIUM CHLORIDE 0.9% FLUSH 5 ML FLUSH IVF PRN ×2 (16:45→17:30)
--- NOTE | 2017-01-16 16:48 | PD ---
HPI Chief Complaint: Syncope/Near-Syncope Time Seen by Provider: 16:44 Travel History International Travel<30 days: No Contact w/Intl Traveler<30days: No Traveled to known affect area: No History of Present Illness HPI 86-year-old elderly female presents to the emergency department for evaluation after syncopal episode that occurred today. She states she was unstable up putting groceries in her car. The next thing she knew, she was laying on the ground with people above her. Patient was admitted on January 07 for syncopal episode. She states that prior to January 07, she has never had a syncopal episode. She denies any symptoms before the syncopal episode. No headache or chest pain. No abdominal pain. No nausea or vomiting. She states she feels fine at this time. Patient has a history dementia, hypertension. Patient did hit her head, but denies any current headache. PFSH Past Medical History Blood Disorders: No Anxiety: Yes Depression: Yes Cancer: Yes Cardiovascular Problems: Yes High Cholesterol: Yes Diabetes: No Diminished Hearing: Yes Endocrine: No Gastrointestinal Disorders: Yes (ACID REFLUX) Genitourinary: No Hiatal Hernia: No Hypertension: Yes Immune Disorder: No Medical other: Yes (ELEVATED CHOLESTEROL) Musculoskeletal: Yes Psychiatric: Yes Reproductive: No Respiratory: No Thyroid Disease: No Tetanus Vaccination: Unknown Past Surgical History AICD: No Body Medical Devices: NONE Cardiac Surgery: No Cholecystectomy: Yes Ear Surgery: No Endocrine Surgery: No Eye Surgery: No Gynecologic Surgery: Yes (HYSTERECTOMY ) Hysterectomy: Yes Joint Replacement: No Neurologic Surgery: No Oral Surgery: No Pacemaker: No Thoracic Surgery: Yes (LUMPECTOMY (BENIGN) OF THE LEFT BREAST) Other Surgery: Yes Social History Alcohol Use: No Tobacco Use: No Substance Use: No Allergies-Medications (Allergen,Severity, Reaction): Coded Allergies: No Known Allergies (Verified , 09/08/16) Reported Meds & Prescriptions Reported Meds & Active Scripts Active Reported Clonazepam 0.5 Mg Tab 0.5 Mg PO HS Dorzolamide Opth Drops (Dorzolamide HCl) 2% Soln 1 Drop EACH EYE BID Lumigan Opth Drops (Bimatoprost) 0.01% Soln 1 Drop EACH EYE HS Combigan Opth Drops (Brimonidine-Timolol Opth Drops) 0.2-0.5% Soln 1 Drop EACH EYE BID Exelon Patch (Rivastigmine) 4.6 mg/24 hr Patch 1 Patch T-DERMAL DAILY Lisinopril-Hctz 20-12.5 Mg Tab 1 Tab PO DAILY Atorvastatin (Atorvastatin Calcium) 80 Mg Tab 80 Mg PO HS Namenda (Memantine) 10 Mg Tab 20 Mg PO DAILY Zetia (Ezetimibe) 10 Mg Tab 10 Mg PO DAILY Review of Systems Except as stated in HPI: all other systems reviewed are Neg Physical Exam Narrative GENERAL: Well-developed well-nourished female patient, ambulatory. Afebrile SKIN: Warm and dry. HEAD: Normocephalic. Atraumatic. EYES: No scleral icterus. No injection or drainage. NECK: Supple, trachea midline. No JVD or lymphadenopathy. CARDIOVASCULAR: Regular rate and rhythm without murmurs, gallops, or rubs. RESPIRATORY: Breath sounds equal bilaterally. No accessory muscle use. Lungs sounds are clear to auscultation. GASTROINTESTINAL: Abdomen soft, non-tender, nondistended. MUSCULOSKELETAL: No cyanosis, or edema. Bilateral upper and lower extremity strength 5/5. All extremities are neurovascularly intact. BACK: Nontender without obvious deformity. No CVA tenderness. NEUROLOGICAL: Awake and alert. Cranial nerves II through XII intact. Motor and sensory grossly within normal limits. Five out of 5 muscle strength in all muscle groups. Normal speech. Data Data Last Documented VS Vital Signs Date Time Temp Pulse Resp B/P Pulse Ox O2 Delivery O2 Flow Rate FiO2 01/16/17 16:39 97 Nasal Cannula 2 01/16/17 16:37 98.0 88 18 97/66 Orders Electrocardiogram (01/16/17 16:40) Complete Blood Count With Diff (01/16/17 16:40) Comprehensive Metabolic Panel (01/16/17 16:40) Magnesium (Mg) (01/16/17 16:40) Ckmb (Isoenzyme) Profile (01/16/17 16:40) Troponin I (01/16/17 16:40) Act Partial Throm Time (Ptt) (01/16/17 16:40) Prothrombin Time / Inr (Pt) (01/16/17 16:40) Urinalysis - C+S If Indicated (01/16/17 16:40) Chest, Single Ap (01/16/17 16:40) Ct Brain W/O Iv Contrast(Rout) (01/16/17 16:40) Ecg Monitoring (01/16/17 16:40) Iv Access Insert/Monitor (01/16/17 16:40) Oximetry (01/16/17 16:40) Sodium Chloride 0.9% Flush (Ns Flush) (01/16/17 16:45) Orthostatic Vital Signs (01/16/17 16:40) Sodium Chlorid 0.9% 500 Ml Inj (Ns 500 M (01/16/17 16:45) Blood Culture (01/16/17 17:24) Lactic Acid Sepsis Protocol (01/16/17 17:24) Sodium Chloride 0.9% Flush (Ns Flush) (01/16/17 17:30) Ceftriaxone Inj (Rocephin Inj) (01/16/17 17:30) Azithromycin Inj (Zithromax Inj) (01/16/17 17:30) Potassium Chloride (Kcl) (01/16/17 17:45) Potassium Chloride (Kcl) (01/16/17 19:00) Labs Laboratory Tests Test 01/16/17 01/16/17 16:50 17:30 White Blood Count 6.1 TH/MM3 Red Blood Count 3.36 MIL/MM3 Hemoglobin 10.2 GM/DL Hematocrit 30.0 % Mean Corpuscular Volume 89.0 FL Mean Corpuscular Hemoglobin 30.2 PG Mean Corpuscular Hemoglobin 33.9 % Concent Red Cell Distribution Width 14.5 % Platelet Count 365 TH/MM3 Mean Platelet Volume 8.7 FL Neutrophils (%) (Auto) 72.3 % Lymphocytes (%) (Auto) 19.3 % Monocytes (%) (Auto) 6.2 % Eosinophils (%) (Auto) 1.1 % Basophils (%) (Auto) 1.1 % Neutrophils # (Auto) 4.4 TH/MM3 Lymphocytes # (Auto) 1.2 TH/MM3 Monocytes # (Auto) 0.4 TH/MM3 Eosinophils # (Auto) 0.1 TH/MM3 Basophils # (Auto) 0.1 TH/MM3 CBC Comment DIFF FINAL Differential Comment Prothrombin Time 11.6 SEC Prothromb Time International 1.0 RATIO Ratio Activated Partial 22.4 SEC Thromboplast Time Sodium Level 136 MEQ/L Potassium Level 2.9 MEQ/L Chloride Level 94 MEQ/L Carbon Dioxide Level 33.7 MEQ/L Anion Gap 8 MEQ/L Blood Urea Nitrogen 18 MG/DL Creatinine 2.28 MG/DL Estimat Glomerular Filtration 25 ML/MIN Rate Random Glucose 98 MG/DL Calcium Level 8.4 MG/DL Magnesium Level 2.1 MG/DL Total Bilirubin 0.5 MG/DL Aspartate Amino Transf 15 U/L (AST/SGOT) Alanine Aminotransferase 15 U/L (ALT/SGPT) Alkaline Phosphatase 88 U/L Total Creatine Kinase 59 U/L Troponin I LESS THAN 0.02 NG/ML Total Protein 6.8 GM/DL Albumin 3.4 GM/DL Lactic Acid Level 1.6 mmol/L [facility] Medical Decision Making Medical Screen Exam Complete: Yes Emergency Medical Condition: Yes Medical Record Reviewed: Yes Interpretation(s) Chest x-ray - CONCLUSION: Mild left base infiltrate. CT brain - CONCLUSION: Stable brain appearance. No acute findings. Differential Diagnosis Electrolyte abnormality versus ACS versus intracranial abnormality versus cardiac arrhythmia versus hypotension Narrative Course 86-year-old elderly female presents to the emergency department for evaluation after syncopal episode. This is the patient second syncopal episode since January 07. She denies any complaints at this time. EKG, CBC, CMP, magnesium, CK , troponin, PTT, PTT/INR, UA are ordered and pending. Chest x-ray and CT of the brain are ordered and pending. Orthostatic vital signs are ordered and pending. Patient is given normal saline 500 mL bolus. EKG shows sinus rhythm, heart rate 90, no acute ST changes. CBC shows no acute abnormality. CMP shows hypokalemia at 2.9, creatinine is elevated at 2.28, which is elevated since her previous cranial 1.13 on January 09. Magnesium is 2.1. CK is 59. Troponin is less than 0.02. Coags show no acute abnormality. UA is pending. Chest x-ray shows mild left base infiltrate. Ct of the brain shows no acute findings. Patient is given potassium 40 meq PO now and will be given another 40 meq in one hour by mouth. S are paged for admission. Dr. Landaverde accepted admission. Diagnosis Primary Impression: Syncope Qualified Code: R55 - Syncope, unspecified syncope type Additional Impressions: Pneumonia Qualified Code: J18.1 - Pneumonia of left lower lobe due to infectious organism Hypokalemia Acute renal failure Qualified Code: N17.9 - Acute renal failure, unspecified acute renal failure type Admitting Information Admitting Physician Requests: Admit Deedee Bautista Jan 16, 2017 16:48
--- NOTE | 2017-01-16 17:10 | RADRPT ---
EXAM DATE/TIME: 01/16/2017 16:51 [facility] COMPARISON: No previous studies available for comparison. INDICATIONS : Short of breath. MEDICAL HISTORY : Hypercholesterolemia. Hypertension. SURGICAL HISTORY : Hysterectomy. Cholecystectomy. Appendectomy. Left breast lumpectomy. ENCOUNTER: Initial ACUITY: 1 day PAIN SCORE: 0/10 LOCATION: Bilateral chest FINDINGS: Slight streaky parenchymal opacities present the left lung base. Right lung appears clear. No signifi cant effusion is present. Cardiomediastinal contours are satisfactory for technique and projection. CONCLUSION: Mild left base infiltrate. Juno Benitez MD on January 16, 2017 at 17:08 Board Certified Radiologist. This report was verified electronically.
[2017-01-16 17:19] LABS: AUTOMATED NEUTROPHIL # 4.4 TH/MM3 (1.8-7.7); BASOPHIL # 0.1 TH/MM3 (0-0.2); BASOPHIL % 1.1 % (0.0-2.0); EOSINOPHIL # 0.1 TH/MM3 (0-0.4); EOSINOPHIL % 1.1 % (0.0-4.0); HEMO FLAGS DIFF FINAL; LYMPH % 19.3 % (9.0-44.0); LYMPHOCYTE # 1.2 TH/MM3 (1.0-4.8); MEAN CORPUSCULAR HEMOGLOBIN 30.2 PG (27.0-34.0); MEAN CORPUSCULAR HGB CONC 33.9 % (32.0-36.0); MONO % 6.2 % (0.0-8.0); NEUT % 72.3 % (16.0-70.0); PLATELET COUNT 365 TH/MM3 (150-450); RED BLOOD COUNT 3.36 MIL/MM3 (4.00-5.30); RED CELL DISTRIBUTION WIDTH 14.5 % (11.6-17.2); WHITE BLOOD COUNT 6.1 TH/MM3 (4.0-11.0)
--- NOTE | 2017-01-16 17:22 | RADRPT ---
EXAM DATE/TIME: 01/16/2017 17:11 [facility] COMPARISON: CT BRAIN W/O CONTRAST, January 07, 2017, 16:41. INDICATIONS : Dizziness. RADIATION DOSE: 34.68 CTDIvol (mGy) MEDICAL HISTORY : Cardiovascular disease. Hypertension. Dementia. SURGICAL HISTORY : Appendectomy. Cholecystectomy.Hysterectomy. ENCOUNTER: Initial ACUITY: 1 day PAIN SCALE: 0/10 LOCATION: cranial TECHNIQUE: Multiple contiguous axial images were obtained of the head. Using automated exposure control and adj ustment of the mA and/or kV according to patient size, radiation dose was kept as low as reasonably a chievable to obtain optimal diagnostic quality images. FINDINGS: CEREBRUM: Stable cavum septum pellucidum. The ventricles are normal for age. No evidence of midline shift, mas s lesion, hemorrhage or acute infarction. No extra-axial fluid collections are seen. POSTERIOR FOSSA: The cerebellum and brainstem are intact. The 4th ventricle is midline. The cerebellopontine angle i s unremarkable. EXTRACRANIAL: The visualized portion of the orbits is intact. SKULL: The calvaria is intact. No evidence of skull fracture. CONCLUSION: Stable brain appearance. No acute findings. Juno Benitez MD on January 16, 2017 at 17:19 Board Certified Radiologist. This report was verified electronically.
[2017-01-16 17:24] LABS: APTT (PATIENT) 22.4 SEC (24.3-30.1); PROTHROMBIN TIME - PATIENT 11.6 SEC (9.8-11.6)
[2017-01-16] MEDS ORDERED: cefTRIAXone INJ 1,000 MG in SODIUM CHLORIDE 0.9% INJ 100 ML IV ONE (17:30)
[2017-01-16] MEDS ORDERED: AZITHROMYCIN INJ 500 MG in SODIUM CHLOR 0.9% 250 ML INJ 250 ML IV ONE (17:30)
[2017-01-16 17:41] LABS: ANION GAP 8 MEQ/L (5-15); AST (GOT) 15 U/L (15-37); BICARBONATE 33.7 MEQ/L (21.0-32.0); BLOOD UREA NITROGEN 18 MG/DL (7-18); CHLORIDE 94 MEQ/L (98-107); GLOMERULAR FILTRATION RATE 25 ML/MIN (>89); MAGNESIUM 2.1 MG/DL (1.5-2.5); SODIUM (NA) 136 MEQ/L (136-145)
[2017-01-16 17:42] LABS: POTASSIUM 2.9 MEQ/L (3.5-5.1)
[2017-01-16] MEDS ORDERED: POTASSIUM CHLORIDE 20 MEQ CONTROLLED RELEASE TAB PO ONE (17:45)
[2017-01-16 17:46] LABS: ALKALINE PHOSPHATASE 88 U/L (45-117); ALT (GPT) 15 U/L (10-53); CREATINE KINASE 59 U/L (26-192); TOTAL BILIRUBIN ADULT 0.5 MG/DL (0.2-1.0)
--- NOTE | 2017-01-16 18:26 | PD ---
Physical Exam Date Seen by Provider: Jan 16, 2017 Narrative Patient is being seen with Deedee Bautista for a syncopal episode. Data Data Last Documented VS Vital Signs Date Time Temp Pulse Resp B/P Pulse Ox O2 Delivery O2 Flow Rate FiO2 01/16/17 16:39 97 Nasal Cannula 2 01/16/17 16:37 98.0 88 18 97/66 Orders Electrocardiogram (01/16/17 16:40) Complete Blood Count With Diff (01/16/17 16:40) Comprehensive Metabolic Panel (01/16/17 16:40) Magnesium (Mg) (01/16/17 16:40) Ckmb (Isoenzyme) Profile (01/16/17 16:40) Troponin I (01/16/17 16:40) Act Partial Throm Time (Ptt) (01/16/17 16:40) Prothrombin Time / Inr (Pt) (01/16/17 16:40) Urinalysis - C+S If Indicated (01/16/17 16:40) Chest, Single Ap (01/16/17 16:40) Ct Brain W/O Iv Contrast(Rout) (01/16/17 16:40) Ecg Monitoring (01/16/17 16:40) Iv Access Insert/Monitor (01/16/17 16:40) Oximetry (01/16/17 16:40) Sodium Chloride 0.9% Flush (Ns Flush) (01/16/17 16:45) Orthostatic Vital Signs (01/16/17 16:40) Sodium Chlorid 0.9% 500 Ml Inj (Ns 500 M (01/16/17 16:45) Blood Culture (01/16/17 17:24) Lactic Acid Sepsis Protocol (01/16/17 17:24) Sodium Chloride 0.9% Flush (Ns Flush) (01/16/17 17:30) Ceftriaxone Inj (Rocephin Inj) (01/16/17 17:30) Azithromycin Inj (Zithromax Inj) (01/16/17 17:30) Potassium Chloride (Kcl) (01/16/17 17:45) Potassium Chloride (Kcl) (01/16/17 19:00) Labs Laboratory Tests Test 01/16/17 01/16/17 16:50 17:30 White Blood Count 6.1 TH/MM3 Red Blood Count 3.36 MIL/MM3 Hemoglobin 10.2 GM/DL Hematocrit 30.0 % Mean Corpuscular Volume 89.0 FL Mean Corpuscular Hemoglobin 30.2 PG Mean Corpuscular Hemoglobin 33.9 % Concent Red Cell Distribution Width 14.5 % Platelet Count 365 TH/MM3 Mean Platelet Volume 8.7 FL Neutrophils (%) (Auto) 72.3 % Lymphocytes (%) (Auto) 19.3 % Monocytes (%) (Auto) 6.2 % Eosinophils (%) (Auto) 1.1 % Basophils (%) (Auto) 1.1 % Neutrophils # (Auto) 4.4 TH/MM3 Lymphocytes # (Auto) 1.2 TH/MM3 Monocytes # (Auto) 0.4 TH/MM3 Eosinophils # (Auto) 0.1 TH/MM3 Basophils # (Auto) 0.1 TH/MM3 CBC Comment DIFF FINAL Differential Comment Prothrombin Time 11.6 SEC Prothromb Time International 1.0 RATIO Ratio Activated Partial 22.4 SEC Thromboplast Time Sodium Level 136 MEQ/L Potassium Level 2.9 MEQ/L Chloride Level 94 MEQ/L Carbon Dioxide Level 33.7 MEQ/L Anion Gap 8 MEQ/L Blood Urea Nitrogen 18 MG/DL Creatinine 2.28 MG/DL Estimat Glomerular Filtration 25 ML/MIN Rate Random Glucose 98 MG/DL Calcium Level 8.4 MG/DL Magnesium Level 2.1 MG/DL Total Bilirubin 0.5 MG/DL Aspartate Amino Transf 15 U/L (AST/SGOT) Alanine Aminotransferase 15 U/L (ALT/SGPT) Alkaline Phosphatase 88 U/L Total Creatine Kinase 59 U/L Troponin I LESS THAN 0.02 NG/ML Total Protein 6.8 GM/DL Albumin 3.4 GM/DL Lactic Acid Level 1.6 mmol/L MDM Supervised Visit with JEFFREY: Yes Narrative Course I, Dr. Talbot, have reviewed the advance practice practitioner's documentation and am in agreement, met with the patient face to face, made the diagnosis, and the medical decision making was done by me. *My assessment and Findings: Patient is currently awake and alert and in no acute distress. Telma Talbot MD Jan 16, 2017 18:26
[2017-01-16] MEDS ORDERED: MAGNESIUM HYDROXIDE SUSP 30 ML CUP PO PRN (18:45)
[2017-01-16] MEDS ORDERED: ONDANSETRON HCL 4 MG/2 ML VIAL IVP PRN (18:45)
[2017-01-16] MEDS ORDERED: ACETAMINOPHEN 325 MG TAB PO PRN (18:45)
[2017-01-16] MEDS ORDERED: NALOXONE HCL 0.4 MG/ML AMP IV PRN (18:45)
[2017-01-16] MEDS ORDERED: SODIUM CHLORIDE 0.9% FLUSH 5 ML FLUSH FLUSH PRN (18:45)
[2017-01-16] MEDS ORDERED: BISACODYL 10 MG SUPP PR PRN (18:45)
[2017-01-16 18:48] LABS: BLOOD, URINE NEG (NEG); GLUCOSE,URINE NEG (NEG); KETONE, URINE NEG (NEG); MUCUS URINE FEW /lpf (OCC); NITRITE,URINE NEG (NEG); PH, URINE 7.5 (5.0-8.5); URINE COLOR YELLOW (YELLW/STRAW)
[2017-01-16 18:49] LABS: COMMENT (UR) CULT NOT INDICATED; CULTURE IF INDICATED CULT NOT INDICATED
[2017-01-16] MEDS: SODIUM CHLOR 0.9% 1000 ML INJ 1,000 ML IV SCH ×2 (19:11→23:28)
[2017-01-16 19:26] VITALS: BP 134/61; PULSE 98; RESP 16; O2SAT 98
[2017-01-16 22:25] VITALS: BP 120/56; PULSE 98; RESP 14; O2SAT 97
[2017-01-16] MEDS: POTASSIUM CHLORIDE 20 MEQ CONTROLLED RELEASE TAB PO SCH (22:25)
[2017-01-16 22:45] VITALS: PULSE 85
[2017-01-16] MEDS: SODIUM CHLORIDE 0.9% FLUSH 5 ML FLUSH FLUSH SCH (23:29)
[2017-01-16] MEDS: BRIMONIDINE TARTRATE 0.2% OPHT SOLN 5 ML BTL EACH EYE SCH (23:29)
[2017-01-16] MEDS: LATANOPROST 0.005% OPHT SOLN 2.5 ML BTL EACH EYE SCH (23:29)
[2017-01-16] MEDS: DORZOLAMIDE 2% OPTH SOLN 200 DROP/10 ML BTLO EACH EYE SCH (23:29)
[2017-01-16] MEDS: TIMOLOL MALEATE 0.5% OPHT SOLN 5 ML BTL EACH EYE SCH (23:29)
[2017-01-16] MEDS: ATORVASTATIN 80 MG TAB PO SCH (23:35)
[2017-01-17] VITALS (8 sets, daily range): BP systolic 102–148; BP diastolic 49–68; PULSE 85–95; RESP 16–18; TEMP 96.9–98.9; O2SAT 94–98
[2017-01-17 04:42] LABS: AUTOMATED NEUTROPHIL # 3.5 TH/MM3 (1.8-7.7); BASOPHIL # 0.1 TH/MM3 (0-0.2); BASOPHIL % 1.8 % (0.0-2.0); EOSINOPHIL # 0.1 TH/MM3 (0-0.4); EOSINOPHIL % 1.6 % (0.0-4.0); HEMO FLAGS DIFF FINAL; LYMPH % 32.9 % (9.0-44.0); MEAN CELL VOLUME 88.3 FL (80.0-100.0); MEAN CORPUSCULAR HGB CONC 33.9 % (32.0-36.0); MONO % 7.4 % (0.0-8.0); NEUT % 56.3 % (16.0-70.0); PLATELET COUNT 285 TH/MM3 (150-450); RED BLOOD COUNT 2.83 MIL/MM3 (4.00-5.30); RED CELL DISTRIBUTION WIDTH 14.7 % (11.6-17.2); WHITE BLOOD COUNT 6.2 TH/MM3 (4.0-11.0)
[2017-01-17 05:07] LABS: BICARBONATE 28.9 MEQ/L (21.0-32.0); POTASSIUM 3.6 MEQ/L (3.5-5.1)
--- NOTE | 2017-01-17 08:16 | HHI.HP ---
HPI Service [facility] Primary Care Physician Evans Johns M.D. Admission Diagnosis syncope, hypokalemia, pneumonia, acute renal failure Diagnoses: Chief Complaint: syncope (Radha Thibodeaux) Travel History International Travel<30 Days: No Contact w/Intl Traveler <30 Da: No Traveled to Known Affected Are: No (Radha Thibodeaux) History of Present Illness This is a pleasant 86-year-old elderly female with a history of hypertension, hyperlipidemia, dementia. Patient presented to the emergency room after she had a syncopal episode. Patient was recently admitted from January 07 to January 09 for syncopal episode, she had neuro workup that was negative. EEG didn't show any seizures. She was evaluated by neurology. Endorses mild dementia but overall a decent historian, is independent and still drives. According to the patient, she was at a local market putting groceries in her car and the next thing she remembers is laying on the ground with people above her. She denies any preceding symptoms such as lightheadedness, no chest pain, no dizziness, no palpitations. After she woke up, she did not remember any loss of bowel or bladder function. She did hit her head, no headache. In the emergency room, patient was evaluated. Blood pressure was noted 97/66, heart rate 88, respiratory rate 18, temperature 90.8. EKG didn't show any significant findings , sinus rhythm. She was noted dehydrated, creatinine elevated 2.28. She was hypokalemic with potassium 2.9. CBC remarkable for mild anemia. Chest x-ray show mild left base infiltrate. CT of the head was negative. Patient was given a fluid bolus, potassium was replaced. Blood cultures were obtained and patient was started on empiric antibiotics. Patient endorses she doesn't drink a lot of water at home and she may have gotten dehydrated. She denies any cough , no sputum production. No recent fever, no chills. No diarrhea, no abdominal pain. Indicates she has been eating well. Patient is admitted for further evaluation and treatment. (Radha Thibodeaux) Review of Systems ROS Limitations: Clinical Condition Cardiovascular: COMPLAINS OF: Syncope (Radha Thibodeaux) Past Family Social History Past Medical History 1. Hyperlipidemia. 2. Hard of hearing. 3. Gastroesophageal reflux disease. 4. Hypertension. 5. Anxiety. 6. Dementia 7. Gallstones. 8. Admitted for syncop 01/07 to 01/09, had neuro work up, EEG negative for seizures, no stroke Past Surgical History 1. Cholecystectomy. 2. Hysterectomy. 3. Lumpectomy, benign for removal in her left breast. Reported Medications Reported Meds & Active Scripts Active Reported Clonazepam 0.5 Mg Tab 0.5 Mg PO HS Dorzolamide Opth Drops (Dorzolamide HCl) 2% Soln 1 Drop EACH EYE BID Lumigan Opth Drops (Bimatoprost) 0.01% Soln 1 Drop EACH EYE HS Combigan Opth Drops (Brimonidine-Timolol Opth Drops) 0.2-0.5% Soln 1 Drop EACH EYE BID Exelon Patch (Rivastigmine) 4.6 mg/24 hr Patch 1 Patch T-DERMAL DAILY Lisinopril-Hctz 20-12.5 Mg Tab 1 Tab PO DAILY Atorvastatin (Atorvastatin Calcium) 80 Mg Tab 80 Mg PO HS Namenda (Memantine) 10 Mg Tab 20 Mg PO DAILY Zetia (Ezetimibe) 10 Mg Tab 10 Mg PO DAILY (Radha Thibodeaux) Allergies: Coded Allergies: No Known Allergies (Verified , 09/08/16) Active Ordered Medications Inpatient Medications Acetaminophen (Tylenol) 650 mg Q4H PRN PO TEMP > 100.4; Start 01/16/17 at 18:45 Atorvastatin Calcium (Lipitor) 80 mg HS PO Last administered on 01/16/17 23:35 ; Start 01/16/17 at 21:00 Azithromycin 500 mg/Sodium Chloride 250 ml @ 250 mls/hr Q24H IV ; Start at 18:00 Azithromycin/ Sodium Chloride (Zithromax Inj/ NS 250 ml Inj) 250 ml @ 250 mls/ hr ONCE ONCE IV Last administered on 01/16/17 18:22; Start 01/16/17 at 17:30 ; Stop 01/16/17 at 18:29; Status DC Bisacodyl (Dulcolax Supp) 10 mg DAILY PRN [place] CONSTIPATION; Start 01/16/17 at 18 :45 Brimonidine Tartrate (Alphagan 0.2% Opth Soln) 1 drop BID EACH EYE Glaucoma Last administered on 01/16/17 23:29; Start 01/16/17 at 21:00 Ceftriaxone Sodium 1000 mg/ Sodium Chloride 100 ml @ 200 mls/hr ONCE ONCE IV Last administered on 01/16/17 18:22; Start 01/16/17 at 17:30; Stop 01/16/17 at 17:59; Status DC Ceftriaxone Sodium/Sodium Chloride (Rocephin Inj/NS Inj) 100 ml @ 200 mls/hr Q24H IV ; Start 01/17/17 at 17:00 Dorzolamide HCl (Trusopt 2% Opt Soln) 1 drop BID EACH EYE Last administered on 01/16/17 23:29; Start 01/16/17 at 21:00 EZETIMIBE (Zetia) 10 mg DAILY PO ; Start 01/17/17 at 09:00 Influenza Virus Vaccine (Flu (Quadrivalent) Vaccine Inj) 0.5 ml ONCE ONCE IM ; Start 01/18/17 at 10:00; Stop 01/18/17 at 10:01 IV Flush (NS Flush) 2 ml BID FLUSH Last administered on 01/16/17 23:29; Start 01/16/17 at 21:00 IV Flush 2 ml 2 ml UNSCH PRN IVF FLUSH AFTER USING IV ACCESS; Start 01/16/17 at 17:30 Latanoprost (Xalatan 0.005% Opth Soln) 1 drop HS EACH EYE Intraocular Pressure Last administered on 01/16/17 23:29; Start 01/16/17 at 21:00 Magnesium Hydroxide (Milk Of Magnesia Liq) 30 ml Q12H PRN PO CONSTIPATION; Start 01/16/17 at 18:45 Memantine (Namenda) 20 mg DAILY PO ; Start 01/17/17 at 09:00 Naloxone HCl 0.4 mg 0.4 mg UNSCH PRN IV SEE LABEL COMMENTS; Start 01/16/17 at 18:45 Ondansetron HCl (Zofran Inj) 4 mg Q6H PRN IVP NAUSEA OR VOMITING; Start at 18:45 Pneumococcal Polyvalent Vaccine (Pneumovax-23 Inj) 25 mcg ONCE ONCE IM ; Start 01/18/17 at 10:00; Stop 01/18/17 at 10:01 Potassium Chloride 40 meq 40 meq ONCE PO Last administered on 01/16/17 22:25; Start 01/16/17 at 19:00 Potassium Chloride (KCl) 40 meq ONCE ONCE PO Last administered on 01/16/17 18 :22; Start 01/16/17 at 17:45; Stop 01/16/17 at 17:47; Status DC Rivastigmine (Exelon 4.6 Mg Patch.24hr) 1 patch DAILY T-DERMAL ; Start 01/17/17 at 09:00 Sodium Chloride (NS 1000 ml Inj) 1,000 ml @ 100 mls/hr Q10H IV Last administered on 01/16/17 23:28; Start 01/16/17 at 18:44 Sodium Chloride (NS 500 ml Inj) 500 ml @ 500 mls/hr BOLUS ONCE IV Last administered on 01/16/17 17:04; Start 01/16/17 at 16:45; Stop 01/16/17 at 17:44 ; Status DC Timolol Maleate (Timoptic 0.5% Opt Soln) 1 drop BID EACH EYE Last administered on 01/16/17 23:29; Start 01/16/17 at 21:00 Family History Reviewed noncontributory Social History Patient is a , has a daughter who lives near [place], no smoking, no alcohol, no substance. Patient very active, does endorse memory problems but can complete activities of daily living, takes care of her house and still drives (Radha Thibodeaux) Physical Exam Vital Signs Vital Signs Date Time Temp Pulse Resp B/P Pulse Ox O2 Delivery O2 Flow Rate FiO2 01/17/17 07:59 98.3 91 17 102/49 97 01/17/17 04:21 97.8 90 18 115/59 97 01/17/17 00:17 98.4 87 18 121/68 95 01/16/17 22:45 85 01/16/17 22:25 98 14 120/56 97 Room Air 01/16/17 19:26 98 16 134/61 98 Nasal Cannula 2 01/16/17 16:39 97 Nasal Cannula 2 01/16/17 16:37 98.0 88 18 97/66 Physical Exam GENERAL: This is a well-nourished, well-developed patient, in no apparent distress. SKIN: No rashes, ecchymoses or lesions. Cool and dry. HEAD: Atraumatic. Normocephalic. No temporal or scalp tenderness. EYES: Pupils equal round and reactive. Extraocular motions intact. No scleral icterus. No injection or drainage. ENT: Nose without bleeding, purulent drainage or septal hematoma. Throat without erythema, tonsillar hypertrophy or exudate. Uvula midline. Airway patent. NECK: Trachea midline. No JVD or lymphadenopathy. Supple, nontender, no meningeal signs. CARDIOVASCULAR: Regular rate and rhythm without murmurs, gallops, or rubs. RESPIRATORY: Clear to auscultation. Breath sounds equal bilaterally. No wheezes , rales, or rhonchi. GASTROINTESTINAL: Abdomen soft, non-tender, nondistended. No hepato-splenomegaly , or palpable masses. No guarding. MUSCULOSKELETAL: Extremities without clubbing, cyanosis, or edema. No joint tenderness, effusion, or edema noted. No calf tenderness. Negative Homans sign bilaterally. NEUROLOGICAL: Awake and alert. Cranial nerves II through XII intact. Motor and sensory grossly within normal limits. Five out of 5 muscle strength in all muscle groups. Normal speech. Laboratory Laboratory Tests Test 01/16/17 01/16/17 01/16/17 01/17/17 16:50 17:30 18:20 04:09 White Blood Count 6.1 6.2 Red Blood Count 3.36 2.83 Hemoglobin 10.2 8.5 Hematocrit 30.0 25.0 Mean Corpuscular Volume 89.0 88.3 Mean Corpuscular Hemoglobin 30.2 30.0 Mean Corpuscular Hemoglobin 33.9 33.9 Concent Red Cell Distribution Width 14.5 14.7 Platelet Count 365 285 Mean Platelet Volume 8.7 8.8 Neutrophils (%) (Auto) 72.3 56.3 Lymphocytes (%) (Auto) 19.3 32.9 Monocytes (%) (Auto) 6.2 7.4 Eosinophils (%) (Auto) 1.1 1.6 Basophils (%) (Auto) 1.1 1.8 Neutrophils # (Auto) 4.4 3.5 Lymphocytes # (Auto) 1.2 2.0 Monocytes # (Auto) 0.4 0.5 Eosinophils # (Auto) 0.1 0.1 Basophils # (Auto) 0.1 0.1 CBC Comment DIFF FINAL DIFF FINAL Differential Comment Prothrombin Time 11.6 Prothromb Time International 1.0 Ratio Activated Partial 22.4 Thromboplast Time Sodium Level 136 141 Potassium Level 2.9 3.6 Chloride Level 94 104 Carbon Dioxide Level 33.7 28.9 Anion Gap 8 8 Blood Urea Nitrogen 18 14 Creatinine 2.28 1.33 Estimat Glomerular Filtration 25 46 Rate Random Glucose 98 70 Calcium Level 8.4 8.1 Magnesium Level 2.1 Total Bilirubin 0.5 Aspartate Amino Transf 15 (AST/SGOT) Alanine Aminotransferase 15 (ALT/SGPT) Alkaline Phosphatase 88 Total Creatine Kinase 59 Troponin I LESS THAN 0.02 Total Protein 6.8 Albumin 3.4 Lactic Acid Level 1.6 Urine Color YELLOW Urine Turbidity CLEAR Urine pH 7.5 Urine Specific Marshall 1.009 Urine Protein NEG Urine Glucose (UA) NEG Urine Ketones NEG Urine Occult Blood NEG Urine Nitrite NEG Urine Bilirubin NEG Urine Urobilinogen LESS THAN 2.0 Urine Leukocyte Esterase NEG Urine RBC LESS THAN 1 Urine WBC 1 Urine Mucus FEW Microscopic Urinalysis Comment CULT NOT INDICATED Date/Time Procedure Status Source Growth 01/16/17 17:45 Aerobic Blood Culture Received Blood Peripheral Pending 01/16/17 17:45 Anaerobic Blood Culture Received Blood Peripheral Pending (Radha Thibodeaux) Result Diagram: 01/17/17 0409 01/17/17 0409 Imaging Last Impressions Head CT 01/16/17 1640 Signed Impressions: Service Date/Time: Monday, January 16, 2017 17:11 - CONCLUSION: Stable brain appearance. No acute findings. Juno Benitez MD Chest X-Ray 01/16/17 1640 Signed Impressions: Service Date/Time: Monday, January 16, 2017 16:51 - CONCLUSION: Mild left base infiltrate. Juno Benitez MD (Radha Thibodeaux) Assessment and Plan Problem List: (1) Syncope (2) Pneumonia (3) Acute renal failure (4) Hypokalemia (5) Dementia (6) Dehydration (7) Anemia Assessment and Plan Admit to Dr. Parker 86-year-old elderly female with history of mild dementia, hypertension and hyperlipidemia. Admitted with recurrent syncopal episode, possibly secondary to dehydration and infectious process. Had recent neuro workup that was negative for any seizures or stroke. CT head during this admission was negative. Admitted with pneumonia and syncopal episode -Continue with cautious hydration -Continue with antibiotics Follow cultures Acute renal injury, possibly secondary to poor by mouth intake. -Continue with IV fluids -BMP in the morning Avoid nephrotoxic agents Anemia, etiology unclear Iron studies Stool for occult blood -Follow H&H Hypotension Hold antihypertensive agents Continue IV fluids Dementia Continue home medications Home medications reviewed, initiated as indicated Consult physical therapy for evaluation and treatment Case management consultation for home health care and physical therapy SCDs for DVT prophylaxis Plan of care has been discussed with the patient, attending and registered nurse. Further management of the patient will be dependent on the hospital course This patient was seen by myself and Dr. Parker, this H&P is written on his behalf (Radha Thibodeaux) Assessment and Plan pt is seen & Examined d/w PT d/w Radha jean w above see Orders will f/u (Partha Parker MD) Problem Qualifiers (1) Syncope: Qualified Code: R55 - Syncope, unspecified syncope type (2) Pneumonia: Qualified Code: J18.1 - Pneumonia of left lower lobe due to infectious organism (3) Acute renal failure: Qualified Code: N17.9 - Acute renal failure, unspecified acute renal failure type (4) Dementia: Qualified Code: F03.90 - Dementia without behavioral disturbance, unspecified dementia type (5) Anemia: Qualified Code: D64.9 - Anemia, unspecified type Radha Thibodeaux Jan 17, 2017 08:16 Partha Parker MD Jan 17, 2017 16:27
[2017-01-17] MEDS: SODIUM CHLORIDE 0.9% FLUSH 5 ML FLUSH FLUSH SCH ×2 (09:00→20:17)
[2017-01-17] MEDS: EZETIMIBE 10 MG TAB PO SCH (09:25)
[2017-01-17] MEDS: DORZOLAMIDE 2% OPTH SOLN 200 DROP/10 ML BTLO EACH EYE SCH ×2 (09:26→20:16)
[2017-01-17] MEDS: BRIMONIDINE TARTRATE 0.2% OPHT SOLN 5 ML BTL EACH EYE SCH ×2 (09:26→20:16)
[2017-01-17] MEDS: MEMANTINE HCL 10 MG TAB PO SCH (09:26)
[2017-01-17] MEDS: TIMOLOL MALEATE 0.5% OPHT SOLN 5 ML BTL EACH EYE SCH ×2 (09:27→20:16)
--- NOTE | 2017-01-17 10:07 | HHI.FF ---
Face to Face Verification Diagnosis: (1) Syncope (2) Pneumonia (3) Dehydration (4) Anemia Physical Therapy Order: Evaluate and Treat Home Health Nursing Order: Medical education Signs/symptoms of disease process Nursing assessment with vital signs [place] Order: To Evaluate: Living conditions/environment, Support services Order: To Provide: Community services I have seen patient Nury Steve on 01/17/17. My clinical findings support the need for the requested home health care services because: Deconditioned w/ increased weakness Need for psychosocial assistance Impaired cognition/judgement High risk of falls I certify that my clinical findings support that this patient is homebound because: Impaired cognitive ability/safety Need for psychosocial assistance Radha Thibodeaux Jan 17, 2017 10:07
[2017-01-17 10:11] LABS: RETIC % 1.1 % (0.4-3.0); REVIEW FLAG FINAL
--- NOTE | 2017-01-17 10:14 | EKG ---
Date Performed: 01/16/2017 Time Performed: 17:42:57 PTAGE: 86 years EKG: Sinus rhythm NORMAL ECG PREVIOUS TRACING : 01/07/2017 16.40 DOCTOR: Jose Franklin Interpretating Date/Time 01/17/2017 10:12:41
[2017-01-17] MEDS: RIVASTIGMINE 4.6 MG/24 HOUR PATCH T-DERMAL SCH (10:48)
[2017-01-17 11:23] LABS: FERRITIN 272 NG/ML (8-252); TRANSFERRIN IRON PROFILE 120 MG/DL (200-360)
[2017-01-17] MEDS: SODIUM CHLOR 0.9% 1000 ML INJ 1,000 ML IV SCH (15:00)
[2017-01-17] MEDS ORDERED: PANTOPRAZOLE SOD 40 MG DELAYED RELEASE TAB PO ONE (16:30)
[2017-01-17] MEDS ORDERED: cefTRIAXone INJ 1,000 MG in SODIUM CHLORIDE 0.9% INJ 100 ML IV SCH (17:00)
[2017-01-17] MEDS ORDERED: AZITHROMYCIN INJ 500 MG in SODIUM CHLOR 0.9% 250 ML INJ 250 ML IV SCH (18:00)
[2017-01-17 18:06] LABS: HEMATOCRIT 28.3 % (35.0-46.0); REVIEW FLAG FINAL
[2017-01-17 18:23] LABS: TRANSFERRIN IRON PROFILE 140 MG/DL (200-360)
[2017-01-17 18:28] LABS: FERRITIN 256 NG/ML (8-252)
[2017-01-17] MEDS: POTASSIUM CHLORIDE 20 MEQ CONTROLLED RELEASE TAB PO SCH (19:49)
[2017-01-17] MEDS: ATORVASTATIN 80 MG TAB PO SCH (20:16)
[2017-01-17] MEDS: LATANOPROST 0.005% OPHT SOLN 2.5 ML BTL EACH EYE SCH (20:16)
[2017-01-18 00:01] VITALS: BP 107/56; PULSE 88; RESP 18; TEMP 97.8; O2SAT 98
[2017-01-18] MEDS: SODIUM CHLOR 0.9% 1000 ML INJ 1,000 ML IV SCH (00:44)
[2017-01-18 04:00] VITALS: BP 108/62; PULSE 68; RESP 18; TEMP 98; O2SAT 97
[2017-01-18 07:53] LABS: HEMATOCRIT 26.7 % (35.0-46.0); MEAN CELL VOLUME 89.1 FL (80.0-100.0); MEAN CORPUSCULAR HEMOGLOBIN 30.2 PG (27.0-34.0); PLATELET COUNT 326 TH/MM3 (150-450); RED CELL DISTRIBUTION WIDTH 14.6 % (11.6-17.2); REVIEW FLAG FINAL; WHITE BLOOD COUNT 6.2 TH/MM3 (4.0-11.0)
--- NOTE | 2017-01-18 08:04 | HHI.PR ---
Subjective Remarks ambulating okay, uses walker at home no cough no cp no sob pleasant, oriented x 3 states she doesn't drink much water at home but will do better Objective Objective Results - Vital Signs Date Time Temp Pulse Resp B/P Pulse Ox O2 Delivery O2 Flow Rate FiO2 01/18/17 04:00 98.0 68 18 108/62 97 01/18/17 00:01 97.8 88 18 107/56 98 01/17/17 19:17 98.8 95 16 108/59 94 01/17/17 17:23 90 110/55 98 137/63 146/68 01/17/17 16:22 98.9 93 17 148/65 97 01/17/17 13:46 96.9 85 17 104/56 98 I/O 01/17/17 01/17/17 01/17/17 01/18/17 01/18/17 01/18/17 07:00 15:00 23:00 07:00 15:00 23:00 Intake Total 800 ml Balance 800 ml Intake IV Total 800 ml # Voids 1 Result Diagram: 01/18/17 0737 01/17/17 0409 Imaging Last Impressions Head CT 01/16/17 1640 Signed Impressions: Service Date/Time: Monday, January 16, 2017 17:11 - CONCLUSION: Stable brain appearance. No acute findings. Juno Benitez MD Chest X-Ray 01/16/17 1640 Signed Impressions: Service Date/Time: Monday, January 16, 2017 16:51 - CONCLUSION: Mild left base infiltrate. Juno Benitez MD Other Results Laboratory Tests Test 01/17/17 01/18/17 17:44 07:37 Hemoglobin 9.2 9.1 Hematocrit 28.3 26.7 Iron Level 31 Total Iron Binding Capacity 196 Percent Iron Saturation 15.8 Ferritin 256 White Blood Count 6.2 Red Blood Count 3.00 Mean Corpuscular Volume 89.1 Mean Corpuscular Hemoglobin 30.2 Mean Corpuscular Hemoglobin 34.0 Concent Red Cell Distribution Width 14.6 Platelet Count 326 Mean Platelet Volume 8.5 Date/Time Procedure Status Source Growth 01/16/17 17:45 Aerobic Blood Culture - Preliminary Resulted Blood Peripheral NO GROWTH IN 1 DAY 01/16/17 17:45 Anaerobic Blood Culture - Preliminary Resulted Blood Peripheral NO GROWTH IN 1 DAY ROS General: Other (12 point ROS completed, negative except as noted above ) Physical Exam Physical Exam GENERAL: This is a well-nourished, well-developed patient, in no apparent distress. SKIN: No rashes, ecchymoses or lesions. Cool and dry. HEAD: Atraumatic. Normocephalic. No temporal or scalp tenderness. EYES: Pupils equal round and reactive. Extraocular motions intact. No scleral icterus. No injection or drainage. ENT: Nose without bleeding, purulent drainage or septal hematoma. Throat without erythema, tonsillar hypertrophy or exudate. Uvula midline. Airway patent. NECK: Trachea midline. No JVD or lymphadenopathy. Supple, nontender, no meningeal signs. CARDIOVASCULAR: Regular rate and rhythm without murmurs, gallops, or rubs. RESPIRATORY: Clear to auscultation. Breath sounds equal bilaterally. No wheezes , rales, or rhonchi. GASTROINTESTINAL: Abdomen soft, non-tender, nondistended. No hepato-splenomegaly , or palpable masses. No guarding. MUSCULOSKELETAL: Extremities without clubbing, cyanosis, or edema. No joint tenderness, effusion, or edema noted. No calf tenderness. Negative Homans sign bilaterally. NEUROLOGICAL: Awake and alert. Cranial nerves II through XII intact. Motor and sensory grossly within normal limits. Five out of 5 muscle strength in all muscle groups. Normal speech. Urinary Catheter: No Vascular Central Line Catheter: No A/P Diagnosis: (1) Syncope (2) Pneumonia (3) Acute renal failure (4) Hypokalemia (5) Dementia (6) Dehydration (7) Anemia Assessment and Plan 86-year-old elderly female with history of mild dementia, hypertension and hyperlipidemia. Admitted with recurrent syncopal episode, possibly secondary to dehydration and infectious process. Had recent neuro workup that was negative for any seizures or stroke. CT head during this admission was negative. Admitted with pneumonia and syncopal episode -Continue with cautious hydration -Continue with antibiotics Follow cultures Acute renal injury, possibly secondary to poor by mouth intake.-now back to normal. -DC IVF -need to increase water intake, d/w pt. Anemia, etiology unclear -low iron stores, start PO iron -HH stable Hypotension-back to normal. -stable now, resume home meds Dementia Continue home medications Consult physical therapy for evaluation and treatment Case management consultation for home health care and physical therapy SCDs for DVT prophylaxis Have nursing/pt ambulate pt. discharge this afternoon with HHC and PT diet-heart healthy, needs to drink more water and prevent dehydration activity-as tolerated, recommend that she doesn't drive for a few days D/W RN D/W Dr. Parker D/W pt This patient was seen by myself and Dr. Parker, this note is written on his behalf Problem Qualifiers (1) Syncope: Qualified Code: R55 - Syncope, unspecified syncope type (2) Pneumonia: Qualified Code: J18.1 - Pneumonia of left lower lobe due to infectious organism (3) Acute renal failure: Qualified Code: N17.9 - Acute renal failure, unspecified acute renal failure type (4) Dementia: Qualified Code: F03.90 - Dementia without behavioral disturbance, unspecified dementia type (5) Anemia: Qualified Code: D64.9 - Anemia, unspecified type Radha Thibodeaux Jan 18, 2017 08:04
[2017-01-18 08:19] LABS: BICARBONATE 24.9 MEQ/L (21.0-32.0); POTASSIUM 3.9 MEQ/L (3.5-5.1)
[2017-01-18 08:47] VITALS: BP 139/79; PULSE 104; RESP 18; TEMP 98.3; O2SAT 94
[2017-01-18 08:51] VITALS: BP 138/75; PULSE 71; RESP 18; TEMP 97.6
[2017-01-18] MEDS ORDERED: FERROUS SULFATE 325 MG (65 MG ELEMENTAL IRON) TAB PO SCH (09:00)
[2017-01-18] MEDS ORDERED: PANTOPRAZOLE SOD 40 MG DELAYED RELEASE TAB PO SCH (09:00)
[2017-01-18] MEDS ORDERED: ZITH250T PO (09:13)
[2017-01-18] MEDS ORDERED: FERR325T PO (09:16)
--- NOTE | 2017-01-18 09:23 | HHI.DCPOC ---
Discharge Care Plan Diagnosis: (1) Acute renal failure (2) Dementia (3) Syncope (4) Pneumonia (5) Dehydration (6) Anemia Your Health Problems Are: Anxiety Difficulty with ADL Goals to Promote Your Health * To prevent worsening of your condition and complications * To maintain your health at the optimal level Directions to Meet Your Goals Take your medications as prescribed Follow your dietary instruction Follow activity as directed Keep your appointments as scheduled Take your immunizations and boosters as scheduled If your symptoms worsen call your PCP, if no PCP go to Urgent Care Center or Emergency Room Smoking is Dangerous to Your Health. Avoid second hand smoke Call the 24-hour hour crisis hotline for domestic abuse at Radha Thibodeaux [facility] Jan 18, 2017 09:23
[2017-01-18] MEDS: SODIUM CHLORIDE 0.9% FLUSH 5 ML FLUSH FLUSH SCH (09:43)
[2017-01-18] MEDS: EZETIMIBE 10 MG TAB PO SCH (09:43)
[2017-01-18] MEDS: MEMANTINE HCL 10 MG TAB PO SCH (09:43)
[2017-01-18] MEDS: BRIMONIDINE TARTRATE 0.2% OPHT SOLN 5 ML BTL EACH EYE SCH (09:44)
[2017-01-18] MEDS: RIVASTIGMINE 4.6 MG/24 HOUR PATCH T-DERMAL SCH (09:44)
[2017-01-18] MEDS: TIMOLOL MALEATE 0.5% OPHT SOLN 5 ML BTL EACH EYE SCH (09:45)
[2017-01-18] MEDS: DORZOLAMIDE 2% OPTH SOLN 200 DROP/10 ML BTLO EACH EYE SCH (09:45)
[2017-01-18] MEDS ORDERED: PNEUMOCOCCAL POLYVALENT INJ 25 MCG/0.5 ML SYR IM ONE (10:00)
[2017-01-18] MEDS ORDERED: INFLUENZA VIRUS VACCINE (QUADRIVALENT) 0.5 ML SYR IM ONE (10:00)
[2017-01-18] MEDS ORDERED: PANT40TA3 PO (10:46)
--- NOTE | 2017-01-20 18:38 | HHI.DS ---
Discharge Summary Admission Date Jan 16, 2017 at 18:42 Discharge Date: Jan 18, 2017 Admitting Diagnosis syncope, hypokalemia, pneumonia, acute renal failure (1) Syncope Diagnosis: Principal (2) Pneumonia Diagnosis: Principal (3) Acute renal failure Diagnosis: Principal (4) Hypokalemia Diagnosis: Principal (5) Dementia Diagnosis: Secondary (6) Dehydration Diagnosis: Principal (7) Anemia Diagnosis: Secondary Brief History This was a pleasant 86-year-old elderly female with a history of hypertension, hyperlipidemia, dementia. Patient presented to the emergency room after she had a syncopal episode. Patient was recently admitted from January 07 to January 09 for syncopal episode, she had neuro workup that was negative. EEG didn't show any seizures. She was evaluated by neurology. Endorsed mild dementia but overall a decent historian, was independent and still drives. According to the patient, she was at a local market putting groceries in her car and the next thing she remembers was lying on the ground with people above her. She denied any preceding symptoms such as lightheadedness, no chest pain, no dizziness, no palpitations. After she woke up, she did not remember any loss of bowel or bladder function. She did hit her head, no headache. CBC/BMP: 01/18/17 0737 01/18/17 0737 Significant Findings Laboratory Tests Test 01/18/17 07:37 Red Blood Count 3.00 MIL/MM3 (4.00-5.30) Hemoglobin 9.1 GM/DL (11.6-15.3) Hematocrit 26.7 % (35.0-46.0) Chloride Level 109 MEQ/L (98-107) Estimat Glomerular Filtration 66 ML/MIN (>89) Rate Calcium Level 8.1 MG/DL (8.5-10.1) PE at Discharge GENERAL: This was a well-nourished, well-developed patient, in no apparent distress. SKIN: No rashes, ecchymoses or lesions. Cool and dry. HEAD: Atraumatic. Normocephalic. No temporal or scalp tenderness. EYES: Pupils equal round and reactive. Extraocular motions intact. No scleral icterus. No injection or drainage. ENT: Nose without bleeding, purulent drainage or septal hematoma. Throat without erythema, tonsillar hypertrophy or exudate. Uvula midline. Airway patent. NECK: Trachea midline. No JVD or lymphadenopathy. Supple, nontender, no meningeal signs. CARDIOVASCULAR: Regular rate and rhythm without murmurs, gallops, or rubs. RESPIRATORY: Clear to auscultation. Breath sounds equal bilaterally. No wheezes , rales, or rhonchi. GASTROINTESTINAL: Abdomen soft, non-tender, nondistended. No hepato-splenomegaly , or palpable masses. No guarding. MUSCULOSKELETAL: Extremities without clubbing, cyanosis, or edema. No joint tenderness, effusion, or edema noted. No calf tenderness. Negative Homans sign bilaterally. NEUROLOGICAL: Awake and alert. Cranial nerves II through XII intact. Motor and sensory grossly within normal limits. Five out of 5 muscle strength in all muscle groups. Normal speech. Hospital Course In the emergency room, patient was evaluated. Blood pressure was noted 97/66, heart rate 88, respiratory rate 18, temperature 90.8. EKG didn't show any significant findings , sinus rhythm. She was noted dehydrated, creatinine elevated 2.28. She was hypokalemic with potassium 2.9. CBC remarkable for mild anemia. Chest x-ray showed mild left base infiltrate. CT of the head was negative. Patient was given a fluid bolus, potassium was replaced. Blood cultures were obtained and patient was started on empiric antibiotics. Patient endorsed she doesn't drink a lot of water at home and she may have gotten dehydrated. She denied any cough , no sputum production. No recent fever, no chills. No diarrhea, no abdominal pain. Indicates she had been eating well. Patient was admitted for further evaluation and treatment. After admission these are the diagnoses that were used to repeat this patient and provide plan of care. (1) Syncope (2) Pneumonia (3) Acute renal failure (4) Hypokalemia (5) Dementia (6) Dehydration (7) Anemia 86-year-old elderly female with history of mild dementia, hypertension and hyperlipidemia. Admitted with recurrent syncopal episode, possibly secondary to dehydration and infectious process. Had recent neuro workup that was negative for any seizures or stroke. CT head during this admission was negative. Admitted with pneumonia and syncopal episode -Continue with cautious hydration -Continue with antibiotics on admission Follow cultures, which were negative. Acute renal injury, possibly secondary to poor by mouth intake.-now back to normal. Gentle hydration initially until patient was stabilized with BP. -DC IVF on day of discharge -need to increase water intake, d/w plan with pt. Anemia, etiology unclear, probable secondary to chronic disease and age -low iron stores, start PO iron -HH stable Hypotension-back to normal after gentle hydration -stable now, resume home meds Dementia Continue home medications Patient was evaluated per TRAUMA COUNSELLOR and physician day of discharge. Vitals and labs were stable. Patient was able to discharge and follow-up with her PCP. Pt Condition on Discharge: Stable Discharge Disposition: Disch w/ Home Health Serv Discharge Instructions DIET: Follow Instructions for: Heart Healthy Diet Additional Diet Instructions: increase water intake Activities you can perform: Weight Bearing as Gabby Other Activity Instructions: use walker as needed Follow up Referrals: [facility] - 3 Weeks with Steven Méndez MD PCP Follow-up New Medications: Azithromycin (Zithromax) 250 Mg Tab 250 MG PO DIRECTED Take 2 tabs (500 mg) on day 1 then 1 tab daily x 4 days. Infection #4 Ref 0 TAB Ferrous Sulfate (Ferrous Sulfate) 325 Mg Tab 325 MG PO BID iron supplement #60 Ref 1 TAB Pantoprazole (Pantoprazole) 40 Mg Tab 40 MG PO DAILY indigestion #30 TAB Continued Medications: Atorvastatin (Atorvastatin) 80 Mg Tab 80 MG PO HS Cholesterol Management #30 Ref 0 TAB Bimatoprost Opth Drops (Lumigan Opth Drops) 0.01% Soln 1 DROP EACH EYE HS Intraocular Pressure #1 Ref 0 BOTTLE Brimonidine-Timolol Opth Drops (Combigan Opth Drops) 0.2-0.5% Soln 1 DROP EACH EYE BID Glaucoma Ref 0 BOTTLE Clonazepam (Clonazepam) 0.5 Mg Tab 0.5 MG PO HS SLEEP #60 Ref 0 TAB Dorzolamide Opth Drops (Dorzolamide Opth Drops) 2% Soln 1 DROP EACH EYE BID Glaucoma #1 Ref 0 BOTTLE Ezetimibe (Zetia) 10 Mg Tab 10 MG PO DAILY #30 Ref 0 TAB Lisinopril-Hctz (Lisinopril-Hctz) 20-12.5 Mg Tab 1 TAB PO DAILY Blood Pressure Management #30 Ref 0 TAB Memantine (Namenda) 10 Mg Tab 20 MG PO DAILY Alzheimer Disease #30 Ref 0 TAB Rivastigmine Patch (Exelon Patch) 4.6 mg/24 hr Patch 1 PATCH T-DERMAL DAILY Dementia #30 Ref 0 PATCH Svetlana Mercedes Jan 20, 2017 18:38
== END 2017-01-18 12:27 | disposition home health service (06) | DRG 194 ==
LOC: NEPA 15:59 → NEDA 18:42 → NEPGCP 22:34
PROVIDERS: ADMIT Specialist; ATTEND Specialist
DX: J18.9 Pneumonia, unspecified organism (principal); N17.9 Acute kidney failure, unspecified; I95.9 Hypotension, unspecified; E86.0 Dehydration; R55 Syncope and collapse; F03.90 Unspecified dementia, unspecified severity, without behavioral disturbance, psychotic disturbance, mood disturbance, and anxiety; D64.9 Anemia, unspecified; E87.6 Hypokalemia; I10 Essential (primary) hypertension; E78.5 Hyperlipidemia, unspecified; H91.90 Unspecified hearing loss, unspecified ear; K21.9 Gastro-esophageal reflux disease without esophagitis; F41.9 Anxiety disorder, unspecified
CPT/HCPCS: 70450; 71010; 80048; 80053; 81001; 82550; 82607; 82728; 83540; 83550; 83605; 83735; 84484; 85014; 85018; 85025; 85027; 85044; 85610; 85730; 87040; 93005; 96374; 96375; J0456; J0696; J7030; J7040; J7050

== ENCOUNTER 2017-03-25 12:25 | Inpatient (IN) | payer MEDICARE, OTHER ==
[~2017-03-25] VITALS: Ht 157.5 cm; Wt 48.7 kg
[~2017-03-25 12:25] MED LIST changes: +FERR325T PO; -NIAC50TA4 PO; +PANT40TA3 PO; +ZITH250T PO
[2017-03-25 12:32] VITALS: BP 98/56; PULSE 88; RESP 17; TEMP 98.2; O2SAT 98
[2017-03-25 12:36] VITALS: O2SAT 98
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
[2017-03-25 13:07] LABS: AUTOMATED NEUTROPHIL # 3.2 TH/MM3 (1.8-7.7); BASOPHIL # 0.1 TH/MM3 (0-0.2); EOSINOPHIL % 0.7 % (0.0-4.0); HEMATOCRIT 31.8 % (35.0-46.0); LYMPH % 33.5 % (9.0-44.0); LYMPHOCYTE # 1.8 TH/MM3 (1.0-4.8); MEAN CELL VOLUME 87.1 FL (80.0-100.0); MEAN CORPUSCULAR HEMOGLOBIN 30.1 PG (27.0-34.0); MEAN CORPUSCULAR HGB CONC 34.5 % (32.0-36.0); MONO % 4.8 % (0.0-8.0); PLATELET COUNT 177 TH/MM3 (150-450); RED BLOOD COUNT 3.65 MIL/MM3 (4.00-5.30); RED CELL DISTRIBUTION WIDTH 13.8 % (11.6-17.2); WHITE BLOOD COUNT 5.3 TH/MM3 (4.0-11.0)
[2017-03-25 13:10] LABS: HEMO FLAGS AUTO DIFF
[2017-03-25 13:17] LABS: ALT (GPT) 18 U/L (10-53); ANION GAP 12 MEQ/L (5-15); AST (GOT) 24 U/L (15-37); BICARBONATE 27.4 MEQ/L (21.0-32.0); BLOOD UREA NITROGEN 15 MG/DL (7-18); CHLORIDE 97 MEQ/L (98-107); GLOMERULAR FILTRATION RATE 51 ML/MIN (>89); MAGNESIUM 1.9 MG/DL (1.5-2.5); SODIUM (NA) 136 MEQ/L (136-145)
--- NOTE | 2017-03-25 13:17 | RADRPT ---
EXAM DATE/TIME: 03/25/2017 13:02 [facility] COMPARISON: CHEST SINGLE AP, January 16, 2017, 16:51. INDICATIONS : Syncopal episode today MEDICAL HISTORY : None. SURGICAL HISTORY : None. ENCOUNTER: Initial ACUITY: 1 day PAIN SCORE: 0/10 LOCATION: Bilateral chest FINDINGS: Portable AP view of the chest demonstrates a normal-sized cardiac silhouette. No effusion, consolidat ion, or pneumothorax is visualized. The bones and soft tissues demonstrate no acute abnormality. EKG leads overlie the patient. CONCLUSION: No acute cardiopulmonary abnormality is identified. Juno Calvin MD on March 25, 2017 at 13:15 Board Certified Radiologist. This report was verified electronically.
--- NOTE | 2017-03-25 13:20 | RADRPT ---
EXAM DATE/TIME: 03/25/2017 12:52 [facility] COMPARISON: CT BRAIN W/O CONTRAST, January 16, 2017, 17:11. INDICATIONS : Syncope, fall today. RADIATION DOSE: 31.24 CTDIvol (mGy) MEDICAL HISTORY : Carcinoma, breast. Dementia. Hypertension. SURGICAL HISTORY : None. ENCOUNTER: Initial ACUITY: 1 day PAIN SCALE: 0/10 LOCATION: Bilateral head TECHNIQUE: Multiple contiguous axial images were obtained of the head. Using automated exposure control and adj ustment of the mA and/or kV according to patient size, radiation dose was kept as low as reasonably a chievable to obtain optimal diagnostic quality images. FINDINGS: CEREBRUM: There is stable mild atrophy. Ventricles are normal in size. There is a cavum septum pellucidum. No evidence of midline shift, mass lesion, hemorrhage or acute infarction. No extra-axial fluid collect ions are seen. POSTERIOR FOSSA: The cerebellum and brainstem are intact. The 4th ventricle is midline. The cerebellopontine angle i s unremarkable. EXTRACRANIAL: Visualized sinuses are clear. SKULL: The calvaria is intact. No evidence of skull fracture. CONCLUSION: Stable noncontrast head CT. No acute finding is identified. Juno Calvin MD on March 25, 2017 at 13:16 Board Certified Radiologist. This report was verified electronically.
[2017-03-25 13:22] LABS: ALKALINE PHOSPHATASE 65 U/L (45-117); TOTAL BILIRUBIN ADULT 0.4 MG/DL (0.2-1.0)
--- NOTE | 2017-03-25 13:25 | RADRPT ---
EXAM DATE/TIME: 03/25/2017 12:52 [facility] COMPARISON: No previous studies available for comparison. INDICATIONS : Syncope, fall today. RADIATION DOSE: 8.56 CTDIvol (mGy) MEDICAL HISTORY : Carcinoma, breast. Hypertension. Dementia. SURGICAL HISTORY : None. ENCOUNTER: Initial ACUITY: 1 day PAIN SCALE: 0/10 LOCATION: Bilateral neck TECHNIQUE: Volumetric scanning of the cervical spine was performed. Multiplanar reconstructions in the sagittal, coronal and oblique axial planes were performed. Using automated exposure control and adjustment o f the mA and/or kV according to patient size, radiation dose was kept as low as reasonably achievable to obtain optimal diagnostic quality images. FINDINGS: There is normal sagittal spine alignment of the cervical spine. No anterolisthesis or retrolisthesis is present. The atlantoaxial relationship is within normal limits. There is no prevertebral soft tiss ue swelling present. No fracture or dislocation is identified. There is a small central disc protrusi on at C3-C4 and C4-C5. The visualized portions of the posterior fossa, paraspinous soft tissues, and upper lung zones demons trate no acute abnormality. A left thyroid nodule is present measuring 8 mm. CONCLUSION: 1. No acute cervical spine abnormality is identified. There is a small central disc protrusion at C3- C4 and C4-C5 of uncertain chronicity. 2. There is an 8mm left thyroid nodule. Juno Calvin MD on March 25, 2017 at 13:18 Board Certified Radiologist. This report was verified electronically.
[2017-03-25 13:26] LABS: CREATINE KINASE 76 U/L (26-192)
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
[2017-03-25 13:27] LABS: POTASSIUM 2.9 MEQ/L (3.5-5.1)
[2017-03-25 13:41] LABS: ACANTHOCYTES OCC (NORMAL); SCAN/DIFF AUTO DIFF CONFIRMED
[2017-03-25 14:06] VITALS: BP_SYST 108; BP_SYST 119; BP_SYST 121; BP_DIAS 54; BP_DIAS 55; BP_DIAS 58
[2017-03-25] MEDS ORDERED: POTASSIUM CHLORIDE 20 MEQ CONTROLLED RELEASE TAB PO ONE (14:15)
[2017-03-25] MEDS ORDERED: SODIUM CHLORIDE 0.9% FLUSH 10 ML FLUSH IV FLUSH PRN (15:00)
[2017-03-25] MEDS ORDERED: ACETAMINOPHEN 325 MG TAB PO PRN (15:00)
[2017-03-25] MEDS ORDERED: LACTULOSE SYRUP 20 GM/30 ML CUP PO PRN (15:00)
[2017-03-25] MEDS ORDERED: MAGNESIUM HYDROXIDE SUSP 30 ML CUP PO PRN (15:00)
[2017-03-25] MEDS ORDERED: ONDANSETRON HCL 4 MG/2 ML VIAL IVP PRN (15:00)
[2017-03-25] MEDS ORDERED: SENNOSIDES 8.6 MG TAB PO PRN (15:00)
[2017-03-25] MEDS ORDERED: BISACODYL 10 MG SUPP RECTAL PRN (15:00)
[2017-03-25] MEDS ORDERED: NALOXONE HCL 0.4 MG/ML AMP IV PRN (15:00)
[2017-03-25] MEDS: HEPARIN SODIUM - SQ 10,000 UNITS/ML VIAL SQ SCH (15:57)
[2017-03-25] MEDS: SODIUM CHLOR 0.9% 1000 ML INJ 1,000 ML IV SCH (15:58)
[2017-03-25] MEDS: POTASSIUM CHLOR 20 MEQ PREMIX 100 ML IV SCH ×3 (16:11→21:53)
--- NOTE | 2017-03-25 16:21 | HHI.PR ---
Objective Objective Results - Vital Signs Date Time Temp Pulse Resp B/P Pulse Ox O2 Delivery O2 Flow Rate FiO2 03/25/17 14:06 77 119/58 76 121/55 94 108/54 03/25/17 12:36 98 Room Air 03/25/17 12:34 85 17 98 Room Air 03/25/17 12:32 98.2 88 17 98/56 98 Result Diagram: 03/25/17 1245 03/25/17 1245 A/P Assessment and Plan dictated, [id number], Syncope, possible scondary to Hypokalemia, otherwise specified Acute kidney injury and possible dehydration Hypothyroidism with left thyroid nodule Anemia, mild probably secondary to chronic disease attempted to call patient's daughter, (dont have name), but patient gave me this number. [phone], lives in [place]. There was no answering machine to leave message. [id number] Svetlana Mercedes March 25, 2017 16:21
[2017-03-25 16:38] LABS: APTT (PATIENT) 19.2 SEC (24.3-30.1); INTERNATIONAL NORMALIZED RATIO 1.1 RATIO; PROTHROMBIN TIME - PATIENT 11.8 SEC (9.8-11.6)
--- NOTE | 2017-03-25 16:40 | RADRPT ---
EXAM DATE/TIME: 03/25/2017 15:13 [facility] COMPARISON: US CAROTID ARTERIES, January 07, 2017, 20:58. INDICATIONS : Syncope. MEDICAL HISTORY : Hypercholesterolemia. Hypertension. Bilateral glaucoma. Left macular degeneration. Dementia. Hyperl ipidemia. Depression. Anxiety. Benign breast lump. SURGICAL HISTORY : Hysterectomy. Cholecystectomy. Appendectomy. Left breast lumpectomy. Bilateral cataract removal. ENCOUNTER: Initial ACUITY: 1 day PAIN SCORE: 0/10 LOCATION: Bilateral neck PEAK SYSTOLIC VELOCITIES (cm/sec): ICA/CCA RATIO: Right: 0.8 Left: 0.8 ICA: Right: 81.4 Left: 83.3 CCA: Right: 105.6 Left: 108.4 ECA: Right: 94.5 Left: 77.8 VERTEBRAL: Right: 51.0 antegrade Left: 51.7 antegrade Elevated flow velocities and ICA/CCA ratios have been found to correlate with increased degrees of vessel stenosis, calculated as percentage of diameter relative to a normal segment of distal ICA/CCA FINDINGS: RIGHT CAROTID: No significant stenosis is visualized. The waveforms are within normal limits. LEFT CAROTID: No significant stenosis is visualized. The waveforms are within normal limits. VERTEBRAL ARTERIES: Antegrade flow is seen in both vertebral arteries. MISCELLANEOUS: None. CONCLUSION: There is no evidence for hemodynamically significant stenosis. There are to be some improvement on t left.. Dutch Penaloza MD FACR on March 25, 2017 at 16:37 Board Certified Radiologist. This report was verified electronically.
[2017-03-25 17:05] VITALS: BP 147/65; PULSE 68; RESP 16; TEMP 96.8; O2SAT 98
--- NOTE | 2017-03-25 17:05 | MH ---
cc: MARION DEUTSCH MD DATE OF ADMISSION 03/25/2017 DATE OF 1930 CHIEF COMPLAINT Syncopal episode. TRAVEL IN THE LAST 30 DAYS None. HISTORY OF PRESENT ILLNESS This is a very pleasant 86-year-old black female who has been in her usual state of health up until today. The patient states that she drove to the [employer], picked up a few groceries, drove to another store to corn picker some bananas and made a couple of other stops when she was found in the parking lot of one of the stores. She does not remember any details or any syncopal episodes she does not remember. She does not remember anything about passing out or having no symptoms of dizziness, drowsiness or extreme weakness. The patient was also noted to have the almost the exact same symptoms and problem back in December. Her workup was essentially negative and she has done fine since then. The patient denies any recent antibiotic use, has not been sick. Denies any fever. No headaches. No nausea. No vomiting. No diarrhea. No constipation. The patient does have a severely low potassium level. K is currently 2.9 on her current labs and we are giving her IV. She has had p.o. supplement and we are also giving her IV supplements. The patient has a daughter who lives approximately 10 to 11 miles away from her. We are attempting to find her phone number so we can contact her and let her know her mother is here. The patient states that she has taken all of her medication as she is supposed to. .According to the record takes no blood thinners. She is currently alert, oriented to place and people who are familiar to her but she is pleasantly disoriented to time and/or situation. She can recall vague symptom information but forgets very easily what she is attempting to do. PAST MEDICAL HISTORY The past medical history according to records includes anxiety, history of breast cancer, cardiovascular disease, hyperlipidemia, [id number], gastroesophageal reflux disease, hypertension, dementia. PAST SURGICAL HISTORY Hysterectomy, cholecystectomy, lumpectomy from a benign lesion in the left breast. ALLERGIES No known. MEDICATIONS REPORTED 1. Clonazepam. 2. Dorzolamide opthalmic drops. 3. Combigan ophthalmic drops 4. Exelon patch. 5. Lisinopril/hydrochlorothiazide. 6. Atorvastatin. 7. Namenda. 8. Zetia. SOCIAL HISTORY The patient is currently , lives alone. She still drives her car. Does all of her housework. She does any tobacco, alcohol or illicit drug. REVIEW OF SYSTEMS Limited review secondary to the patient's pleasant confusion and altered mental status. She does remember the simple things of going to the store but otherwise unable to obtain other basic information which includes her daughter's phone number. PHYSICAL EXAMINATION VITAL SIGNS: Temperature is 98.2, pulse is between 76 and 88, respiratory rate 17, blood pressure initially on admission 98/56, now supine 119/58, sitting 121/55, standing 108/54, O2 sat 98 on room air. PHYSICAL EXAMINATION GENERAL: Thin, almost frail elderly black female, looks to be her stated age but very alert and cooperative. SKIN: Has pink mucous membranes but warm and dry. HEENT: Atraumatic, normocephalic. NADER mucous membranes were moist. No scleral icterus. Tongue is midline. NECK: Neck is thin, supple. CARDIOVASCULAR: S1-S2 regular rate and rhythm. No murmurs, rubs or gallops. EXTREMITIES: She has no edema. Pulses are intact. LUNGS: Respiratory rates essentially clear to auscultation anteriorly and posteriorly without wheezes, rales or rhonchi. ABDOMEN: Soft, flat, nontender, nondistended with active bowel sounds. MUSCULOSKELETAL: She moves all of her extremities with purpose. 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 No obvious deformities. NEUROLOGICALLY: She is awake and alert. Oriented to time and person, pleasant disorientation to time and situation. PSYCHIATRIC: Appropriate mood and affect. Questionable insight and judgment. DIAGNOSTIC DATA WBC count 5.3, RBC 3.65, hemoglobin is 11, hematocrit is 31.8. Her differential is normal with occasional spur cells. PT/INR is pending. Chemistry, sodium is 136, potassium 2.9, chloride 97, carbon dioxide 27.4, amnion gap 12, BUN 15, creatinine 1.2, GFR 51, random glucose 136, her mag level is 1.9. Troponin is less than 0.02. TSH 8.380, albumin 3.4, total protein 6.7. IMAGING STUDIES Shows chest x-ray to be normal without cardiopulmonary disease. Head CT stable, noncontrast, no acute findings. Cervical spine CT no acute abnormality, small central disk protrusion at C3-C4 and C4-C5, uncertain chronicity. There is an 8 mm left thyroid nodule. ASSESSMENT 1. Syncopal episode, unknown cause. 2. Hypokalemia, severe. 3. Left thyroid nodule with hypothyroidism. 4. Dementia. 5. History of macular degeneration. 6. Acute kidney injury with possible dehydration. PLAN Plan is to admit, inpatient status. We are going to get an MRA of her brain, give her IV doses of potassium 20 milliequivalents times three. She has also had a 40 p.o. and will recheck her labs in the morning. Will place her on a heart healthy diet, IV fluids for gentle hydration. Vital signs q. 4 and as warranted. DVT prophylaxis with heparin. Lactulose p.r.n. for bowel regimen. Will check her 2-D echo, ultrasound carotid arteries. Reconcile her medications. Will also place her on Pepcid for PUD prophylaxis. To my knowledge the patient is full code, full aggressive care and we will reevaluate after further testing is completed. The patient's daughter's telephone number is . I do not have her name, it is listed as Nury Steve' daughter. I am going to call her, let her know her mother is here. We have a case management consult that is pending and we will discuss further the patient's need once her workup is complete. Dictated by: ELIER Magallon MD KAREN Feldman/AVERY /4:05 PM /4:31 PM
[2017-03-25 18:00] VITALS: PULSE 86
[2017-03-25 20:00] VITALS: BP 107/64; PULSE 86; RESP 18; TEMP 99; O2SAT 95
[2017-03-25] MEDS: DOCUSATE SODIUM 50 MG/SENNA 8.6 MG TAB PO SCH (21:00)
[2017-03-25] MEDS: SODIUM CHLORIDE 0.9% FLUSH 10 ML FLUSH IV FLUSH SCH (21:00)
[2017-03-25] MEDS: FAMOTIDINE 20 MG TAB PO SCH (21:52)
[2017-03-26] VITALS (7 sets, daily range): BP systolic 110–156; BP diastolic 59–74; PULSE 72–96; RESP 17–19; TEMP 96.7–98; O2SAT 96–98
[2017-03-26 01:38] LABS: FREE T3 1.49 PG/ML (2.18-3.98)
[2017-03-26] MEDS: HEPARIN SODIUM - SQ 10,000 UNITS/ML VIAL SQ SCH ×2 (03:49→15:33)
[2017-03-26] MEDS: FAMOTIDINE 20 MG TAB PO SCH ×2 (08:25→20:55)
[2017-03-26 08:30] LABS: AUTOMATED NEUTROPHIL # 4.2 TH/MM3 (1.8-7.7); BASOPHIL % 0.7 % (0.0-2.0); EOSINOPHIL # 0.1 TH/MM3 (0-0.4); HEMATOCRIT 29.6 % (35.0-46.0); HEMO FLAGS DIFF FINAL; LYMPH % 26.9 % (9.0-44.0); LYMPHOCYTE # 1.7 TH/MM3 (1.0-4.8); MEAN CELL VOLUME 87.1 FL (80.0-100.0); MEAN CORPUSCULAR HEMOGLOBIN 29.5 PG (27.0-34.0); MEAN CORPUSCULAR HGB CONC 33.9 % (32.0-36.0); MONO % 6.7 % (0.0-8.0); NEUT % 64.7 % (16.0-70.0); PLATELET COUNT 237 TH/MM3 (150-450); WHITE BLOOD COUNT 6.5 TH/MM3 (4.0-11.0)
[2017-03-26 08:53] LABS: BICARBONATE 26.6 MEQ/L (21.0-32.0); POTASSIUM 3.5 MEQ/L (3.5-5.1)
[2017-03-26] MEDS: SODIUM CHLORIDE 0.9% FLUSH 10 ML FLUSH IV FLUSH SCH ×2 (09:00→20:55)
[2017-03-26] MEDS: DOCUSATE SODIUM 50 MG/SENNA 8.6 MG TAB PO SCH ×2 (09:00→20:55)
[2017-03-26] MEDS ORDERED: INFLUENZA VIRUS VACCINE (QUADRIVALENT) 0.5 ML SYR IM ONE (10:00)
[2017-03-26] MEDS ORDERED: PNEUMOCOCCAL POLYVALENT INJ 25 MCG/0.5 ML SYR IM ONE (10:00)
--- NOTE | 2017-03-26 10:58 | RADRPT ---
EXAM DATE/TIME: 03/26/2017 10:03 [facility] COMPARISON: CT BRAIN W/O CONTRAST, March 25, 2017, 12:52. INDICATIONS : Syncope. MEDICAL HISTORY : Hypertension. SURGICAL HISTORY : Hysterectomy. ENCOUNTER: Initial ACUITY: 1 day PAIN SCORE: 0/10 LOCATION: cranial Please note a normal MRA of the brain does not entirely exclude the possibility of a small aneurysm, nor the possibility of distal intracranial vessel disease. TECHNIQUE: 3D time of flight MRA was performed. Source images, multiplanar STS MIP, and 3D volume MIP reconstru ctions were reviewed. FINDINGS: Anterior circulation: The internal carotid arteries demonstrate no abnormality or atherosclerotic change. A1 segments and m ore distal anterior cerebral arteries are symmetric and within normal limits. The middle cerebral art tess branches demonstrate symmetric flow related enhancement. No aneurysm or high-grade stenosis is id entified. Posterior circulation: There are patent posterior cerebral arteries bilaterally with persistent circulation on the rig ht. Vertebral arteries are codominant. The basilar artery and posterior cerebral arteries demonstrate no significant stenosis or abnormality. No aneurysm is visualized. CONCLUSION: No intracranial vascular abnormality is identified. Juno Calvin MD on March 26, 2017 at 10:52 Board Certified Radiologist. This report was verified electronically.
--- NOTE | 2017-03-26 14:14 | HHI.PR ---
Subjective Subjective Remarks awake, oriented x 3 poor historian forgetful doesn't want to go to rehab, states daughter and niece can help no fever no sob no cp Review of Systems Constitutional Constitutional Remarks 12 point review of systems completed, negative except as noted above,unreliable Vitals/Results Vital Signs Vital Signs Date Time Temp Pulse Resp B/P Pulse Ox O2 Delivery O2 Flow Rate FiO2 03/26/17 12:00 97.9 72 18 156/70 96 03/26/17 08:00 97.4 96 17 121/59 96 03/26/17 04:00 97.0 94 18 152/74 97 03/26/17 00:00 98.0 75 18 110/73 98 03/25/17 20:00 99.0 86 18 107/64 95 03/25/17 18:00 86 03/25/17 17:05 96.8 68 16 147/65 98 CBC/BMP: 03/26/17 0730 03/26/17 0730 Lab Results Laboratory Tests Test 03/25/17 03/25/17 03/26/17 03/26/17 16:00 19:08 01:04 07:30 Prothrombin Time 11.8 SEC Prothromb Time International 1.1 RATIO Ratio Activated Partial 19.2 SEC Thromboplast Time Troponin I LESS THAN 0.02 LESS THAN 0.02 NG/ML NG/ML Free Triiodothyronine (T3) 1.49 PG/ML pg/dL White Blood Count 6.5 TH/MM3 Red Blood Count 3.40 MIL/MM3 Hemoglobin 10.0 GM/DL Hematocrit 29.6 % Mean Corpuscular Volume 87.1 FL Mean Corpuscular Hemoglobin 29.5 PG Mean Corpuscular Hemoglobin 33.9 % Concent Red Cell Distribution Width 14.0 % Platelet Count 237 TH/MM3 Mean Platelet Volume 9.5 FL Neutrophils (%) (Auto) 64.7 % Lymphocytes (%) (Auto) 26.9 % Monocytes (%) (Auto) 6.7 % Eosinophils (%) (Auto) 1.0 % Basophils (%) (Auto) 0.7 % Neutrophils # (Auto) 4.2 TH/MM3 Lymphocytes # (Auto) 1.7 TH/MM3 Monocytes # (Auto) 0.4 TH/MM3 Eosinophils # (Auto) 0.1 TH/MM3 Basophils # (Auto) 0.0 TH/MM3 CBC Comment DIFF FINAL Differential Comment Sodium Level 137 MEQ/L Potassium Level 3.5 MEQ/L Chloride Level 103 MEQ/L Carbon Dioxide Level 26.6 MEQ/L Anion Gap 7 MEQ/L Blood Urea Nitrogen 9 MG/DL Creatinine 0.89 MG/DL Estimat Glomerular Filtration 73 ML/MIN Rate Random Glucose 127 MG/DL Calcium Level 8.5 MG/DL Physical Exam General General Appearance: Well Developed, No Acute Distress, Comfortable Eyes Eye Exam: Pupils Equal, Pupils Reactive Ears & Nose Ears & Nose Exam: Nasal Mucosa [place] Throat Throat Exam: Oral Mucosa [place] & Moist Neck Neck Exam: Neck Supple, Trachea Midline Pulmonary Resp Exam: Clear Bilaterally Cardiology CV Exam: Regular, Good Perfusion Gastrointestinal/Abdomen GI Exam: Soft, Non-Tender, Bowel Sounds Present, Non-Distended Musculoskeletal MS Exam: Joints Intact Integumentary Skin Exam: Warm, Dry Extremeties Extremities Exam: No Edema, Pedal Pulses Palpable Neurologic Neuro Exam: Alert, Awake, Oriented, Speech Clear, Moving All Extremities, No Focal Deficits Psychiatric Psych Exam: Appropriate Responses Assessment/Plan Problem List: (1) Syncope (2) Dementia (3) Dehydration (4) Hypothyroid (5) Hypotension (6) Hypokalemia (7) Anemia (8) Acute renal failure (9) Macular degeneration, age related, nonexudative Assessment/Plan 86 elderly female admitted with syncope, dehydration, KAMI, dementia continue IVF renal function improved K 3.5, replace improved from yesterday CUS results noted, no stenosis echo pending dementia, oriented to self, place, year. has been admitted before for same, still driving. Pt. lives alone pt. not safe for dc, doesn't want SNF. She wants to go home for dc planning, hhc with PT called daughter, no answer, could not leave message Pt. needs more supervision continue Namenda, Exelon TSH level elevated, low Free T3, pt. poss. hypothyroid PT eval and tx, to ambulate home med reviewed, initiated as indicated Pepcid for GI prophylaxis Heparin for DVT prophylaxis Labs in am CM for dc planning hopefully dc tomorrow will try to call daughter again to discuss dc plan, called today, no answer, unable to leave message. D/W pt. D/W RN D/W Dr. Gilbert This patient was seen by myself and Dr. Gilbert, this note is written on his behalf. Problem Qualifiers (1) Syncope: Qualified Code: R55 - Syncope, unspecified syncope type (2) Dementia: Qualified Code: F03.90 - Dementia without behavioral disturbance, unspecified dementia type (3) Hypothyroid: Qualified Code: E03.9 - Hypothyroidism, unspecified type (4) Hypotension: Qualified Code: I95.9 - Hypotension, unspecified hypotension type (5) Anemia: Qualified Code: D64.9 - Anemia, unspecified type (6) Acute renal failure: Qualified Code: N17.9 - Acute renal failure, unspecified acute renal failure type Radha Thibodeaux [facility] March 26, 2017 14:14
[2017-03-26] MEDS ORDERED: POTASSIUM CHLORIDE 25 MEQ EFFERVESCENT TAB PO ONE (14:15)
--- NOTE | 2017-03-26 14:16 | HHI.FF ---
Face to Face Verification Diagnosis: (1) Dehydration (2) Dementia (3) Syncope Physical Therapy Order: Evaluate and Treat Home Health Nursing Order: Medical education Nursing assessment with vital signs I have seen patient Nury Steve on 03/26/17. My clinical findings support the need for the requested home health care services because: Deconditioned w/ increased weakness Impaired cognition/judgement I certify that my clinical findings support that this patient is homebound because: Impaired cognitive ability/safety Need for psychosocial assistance Radha Thibodeaux [facility] March 26, 2017 14:16
--- NOTE | 2017-03-26 15:24 | EKG ---
Date Performed: 03/25/2017 Time Performed: 12:44:34 PTAGE: 86 years EKG: Sinus rhythm WITH OCCASIONAL ECTOPIC PREMATURE COMPLEXES SEPTAL MYOCARDIAL INFARCTION ABNORMAL ECG PREVIOUS TRACING : 01/16/2017 17.42 Since previous tracing, no significant change noted DOCTOR: Kaleb Razo Interpretating Date/Time 03/26/2017 15:24:26
--- NOTE | 2017-03-26 17:23 | EC ---
Study Study Date:03/26/2017 STUDY CONCLUSIONS SUMMARY - Procedure narrative: Transthoracic echocardiography. Image quality was good. Scanning was performed from the parasternal, apical, and subcostal acoustic windows. - Left ventricle: The cavity size was normal. Wall thickness was normal. Systolic function was normal. The estimated ejection fraction was in the range of 60% to 65%. Wall motion was normal; there were no regional wall motion abnormalities. - Aortic valve: Trace regurgitation. - Mitral valve: Trace regurgitation. - Tricuspid valve: Mild-moderate regurgitation. If LV function is below 40, please consider prescribing an ACEI or ARB or document rationale for non-use. PROCEDURE DATA STUDY STATUS: Elective. Procedure: Transthoracic echocardiography. Image quality was good. Scanning was performed from the parasternal, apical, and subcostal acoustic windows. Study completion: The patient tolerated the procedure well. Transthoracic echocardiography. M-mode, complete 2D, complete spectral Doppler, and color Doppler. Height: Height: 62in. Weight: Weight: 109.8lb. Body mass index: BMI: 20.1kg/m^2. Body surface area: BSA: 1.48m^2. Patient status: Inpatient. CARDIAC ANATOMY LEFT VENTRICLE: The cavity size was normal. Wall thickness was normal. Systolic function was normal. The estimated ejection fraction was in the range of 60% to 65%. Wall motion was normal; there were no regional wall motion abnormalities. AORTIC VALVE: Trileaflet; normal thickness leaflets. Doppler: Transvalvular velocity was within the normal range. There was no stenosis. Trace regurgitation. AORTA: Aortic root: The aortic root was normal in size. MITRAL VALVE: Structurally normal valve. Doppler: Transvalvular velocity was within the normal range. There was no evidence for stenosis. Trace regurgitation. Valve area by pressure half-time: 3.01cm^2. Indexed valve area by pressure half-time: 2.03cm^2/m^2. Mean gradient: 3mm Hg (D). Peak gradient: 7mm Hg (D). LEFT ATRIUM: The atrium was normal in size. RIGHT VENTRICLE: The cavity size was normal. Wall thickness was normal. PULMONIC VALVE: Doppler: Transvalvular velocity was within the normal range. There was no evidence for stenosis. No regurgitation. TRICUSPID VALVE: Structurally normal valve. Doppler: Transvalvular velocity was within the normal range. Mild-moderate regurgitation. PULMONARY ARTERY: The main pulmonary artery was normal-sized. Systolic pressure was within the normal range. RIGHT ATRIUM: The atrium was normal in size. PERICARDIUM: There was no pericardial effusion. SYSTEMIC VEINS: Inferior vena cava: The vessel was normal in size. Patient weight: 109.8lb _Ejection fraction:_ 65-75% _Fractional shortening:_ 32% up to 5Kg 5-11.5Kg 11.6-22.9Kg 23-45Kg 45-57Kg Aortic Root 7-13 <17 13-22 17-27 17-27 LA diam 6-13 <23 24-38 33-47 37-40 RVID 10-17 7-15 7-15 7-18 8-17 LVIDd 12-22 <32 24-38 33-47 37-40 LVPW 2-4 3-6 5-7 6-8 7-8 IVS 2-4 3-6 5-7 6-8 7-8 BASIC MEASUREMENTS ADULT NORMAL Left ventricle LV internal dimension, ED, chordal *36.2 mm 43-52 level, PLAX LV internal dimension, ES, chordal 26.3 mm 23-38 level, PLAX Fractional shortening, chordal level, *27 % >29 PLAX LV posterior wall thickness, ED 6.11 mm IVS/LVPW ratio, ED 1.19 <1.3 Ventricular septum Septal thickness, ED 7.28 mm Aortic valve Leaflet separation 19 mm 15-26 Right ventricle RV internal dimension, ED, PLAX 21.7 mm 19-38 BASIC MEASUREMENTS ADULT NORMAL Aortic valve Leaflet separation 19 mm 15-26 Aorta Root diameter, ED 25 mm 20-37 DOPPLER MEASUREMENTS ADULT NORMAL Aortic valve VTI, S 35.7 cm Mitral valve Mean velocity, D 73.1 cm/s Pressure half-time 73 ms Mean gradient, D 3 mm Hg Peak gradient, D 7 mm Hg Valve area, pressure half-time 3.01 cm^2 Valve area index, pressure half-time 2.03 cm^2/m^2 Maximal regurgitant velocity 551 cm/s Tricuspid valve Regurgitant peak velocity 296 cm/s Peak RV-RA gradient, S 35 mm Hg Maximal regurgitant velocity 296 cm/s LEGEND: Mean values are shown as u=mean value. Asterisk (*) padilla values outside specified normal range. Prepared and signed by Primitivo Knowles [id number]
[2017-03-26] MEDS: SODIUM CHLOR 0.9% 1000 ML INJ 1,000 ML IV SCH ×2 (18:47→20:53)
[2017-03-26] MEDS: DORZOLAMIDE 2% OPTH SOLN 200 DROP/10 ML BTLO EACH EYE SCH (20:56)
[2017-03-26] MEDS: TIMOLOL MALEATE 0.5% OPHT SOLN 5 ML BTL EACH EYE SCH (20:56)
[2017-03-26] MEDS: BRIMONIDINE TARTRATE 0.2% OPHT SOLN 5 ML BTL EACH EYE SCH (20:56)
[2017-03-26] MEDS ORDERED: LATANOPROST 0.005% OPHT SOLN 2.5 ML BTL EACH EYE SCH (21:00)
[2017-03-26] MEDS ORDERED: ATORVASTATIN 80 MG TAB PO SCH (21:00)
[2017-03-27] VITALS: BP 113/55; PULSE 83; RESP 18; TEMP 97.9; O2SAT 98
[2017-03-27] MEDS: HEPARIN SODIUM - SQ 10,000 UNITS/ML VIAL SQ SCH ×2 (02:37→12:22)
[2017-03-27 04:57] VITALS: PULSE 80
[2017-03-27] MEDS: SODIUM CHLOR 0.9% 1000 ML INJ 1,000 ML IV SCH (06:00)
[2017-03-27 06:11] VITALS: BP 153/74; PULSE 89; RESP 18; TEMP 99.3; O2SAT 99
[2017-03-27 07:00] VITALS: PULSE 74; PULSE 80
[2017-03-27] MEDS: SODIUM CHLORIDE 0.9% FLUSH 10 ML FLUSH IV FLUSH SCH (08:24)
[2017-03-27] MEDS: DOCUSATE SODIUM 50 MG/SENNA 8.6 MG TAB PO SCH (08:25)
[2017-03-27] MEDS: FAMOTIDINE 20 MG TAB PO SCH (08:26)
[2017-03-27] MEDS: DORZOLAMIDE 2% OPTH SOLN 200 DROP/10 ML BTLO EACH EYE SCH (08:27)
[2017-03-27] MEDS: TIMOLOL MALEATE 0.5% OPHT SOLN 5 ML BTL EACH EYE SCH (08:27)
[2017-03-27] MEDS: BRIMONIDINE TARTRATE 0.2% OPHT SOLN 5 ML BTL EACH EYE SCH (08:27)
[2017-03-27 08:33] VITALS: BP 141/74; PULSE 83; RESP 18; TEMP 99; O2SAT 95
[2017-03-27] MEDS ORDERED: MEMANTINE HCL 10 MG TAB PO SCH (09:00)
[2017-03-27] MEDS ORDERED: LISINOPRIL 20 MG TAB PO SCH (09:00)
[2017-03-27] MEDS ORDERED: EZETIMIBE 10 MG TAB PO SCH (09:00)
[2017-03-27] MEDS ORDERED: RIVASTIGMINE 4.6 MG/24 HOUR PATCH T-DERMAL SCH (09:00)
[2017-03-27] MEDS ORDERED: HYDROCHLOROTHIAZIDE 25 MG TAB PO SCH (09:00)
[2017-03-27] MEDS ORDERED: NON-FORMULARY DRUG (Lisinopril-Hctz 1 TAB) PO SCH (09:00)
[2017-03-27 12:39] VITALS: BP 129/63; PULSE 80; RESP 18; TEMP 98.7; O2SAT 99
--- NOTE | 2017-03-27 14:32 | HHI.PR ---
Subjective Subjective Remarks awake, oriented x 3 ambulating okay poor historian forgetful anxious to go home no sob no cp Review of Systems Constitutional Constitutional Remarks 12 point review of systems completed, negative except as noted above,unreliable Vitals/Results Intake & Output 03/26/17 03/26/17 03/27/17 15:00 23:00 07:00 Intake Total 480 ml 2290 ml 1200 ml Balance 480 ml 2290 ml 1200 ml Intake Oral 480 ml IV Total 2290 ml 1200 ml # Voids 3 4 1 # Bowel Movements 1 0 Vital Signs Vital Signs Date Time Temp Pulse Resp B/P Pulse Ox O2 Delivery O2 Flow Rate FiO2 03/27/17 12:39 98.7 80 18 129/63 99 03/27/17 08:33 99.0 83 18 141/74 95 03/27/17 07:00 80 03/27/17 06:11 99.3 89 18 153/74 99 03/27/17 04:57 80 03/27/17 00:00 97.9 83 18 113/55 98 03/26/17 20:00 96.7 92 18 137/72 98 03/26/17 16:00 97.1 86 19 149/64 96 CBC/BMP: 03/26/17 0730 03/26/17 0730 Physical Exam General General Appearance: Well Developed, No Acute Distress, Comfortable Eyes Eye Exam: Pupils Equal, Pupils Reactive Ears & Nose Ears & Nose Exam: Nasal Mucosa [place] Throat Throat Exam: Oral Mucosa [place] & Moist Neck Neck Exam: Neck Supple, Trachea Midline Pulmonary Resp Exam: Clear Bilaterally Cardiology CV Exam: Regular, Good Perfusion Gastrointestinal/Abdomen GI Exam: Soft, Non-Tender, Bowel Sounds Present, Non-Distended Musculoskeletal MS Exam: Joints Intact Integumentary Skin Exam: Warm, Dry Extremeties Extremities Exam: No Edema, Pedal Pulses Palpable Neurologic Neuro Exam: Alert, Awake, Oriented, Speech Clear, Moving All Extremities, No Focal Deficits Psychiatric Psych Exam: Appropriate Responses Assessment/Plan Problem List: (1) Syncope (2) Dementia (3) Dehydration (4) Hypothyroid (5) Hypotension (6) Hypokalemia (7) Anemia (8) Acute renal failure (9) Macular degeneration, age related, nonexudative Assessment/Plan 86 elderly female admitted with syncope, dehydration, KAMI, dementia renal function improved CUS results noted, no stenosis echo ok EF 60-65% dementia, oriented to self, place, year. has been admitted before for same, still driving. Pt. lives alone called both number for daughter, no answer spoke to pt's niece, she lives down the street and can help CM for dc planning, hhc with PT Pt. needs more supervision continue Namenda, Exelon TSH level elevated, low Free T3, pt. poss. hypothyroid has nodule, needs f/u as OP PT eval and tx, to ambulate-recommend HHC with PT Pepcid for GI prophylaxis Heparin for DVT prophylaxis CM for dc planning, arrange HHC poss. dc today if arrangements can be made D/W pt. D/W RN D/W Dr. Gilbert D/W CM This patient was seen by myself and Dr. Gilbert, this note is written on his behalf. Problem Qualifiers (1) Syncope: Qualified Code: R55 - Syncope, unspecified syncope type (2) Dementia: Qualified Code: F03.90 - Dementia without behavioral disturbance, unspecified dementia type (3) Hypothyroid: Qualified Code: E03.9 - Hypothyroidism, unspecified type (4) Hypotension: Qualified Code: I95.9 - Hypotension, unspecified hypotension type (5) Anemia: Qualified Code: D64.9 - Anemia, unspecified type (6) Acute renal failure: Qualified Code: N17.9 - Acute renal failure, unspecified acute renal failure type Radha Thibodeaux March 27, 2017 14:32
--- NOTE | 2017-03-27 14:45 | HHI.DCPOC ---
Discharge Care Plan Diagnosis: (1) Syncope (2) Dementia (3) Hypokalemia (4) Acute renal failure (5) Dehydration Your Health Problems Are: Difficulty with ADL Goals to Promote Your Health * To prevent worsening of your condition and complications * To maintain your health at the optimal level Directions to Meet Your Goals Take your medications as prescribed Follow your dietary instruction Follow activity as directed Keep your appointments as scheduled Take your immunizations and boosters as scheduled If your symptoms worsen call your PCP, if no PCP go to Urgent Care Center or Emergency Room Smoking is Dangerous to Your Health. Avoid second hand smoke Call the 24-hour hour crisis hotline for domestic abuse at Radha Thibodeaux. [facility] March 27, 2017 14:44
[2017-03-27] MEDS ORDERED: PILL SPLITTER OTHER PRN (15:15)
--- NOTE | 2017-03-27 19:26 | HHI.DS ---
Discharge Summary Admission Date March 25, 2017 at 14:49 Discharge Date: March 27, 2017 Admitting Diagnosis Sycnope, dementia, dehydration, hypokalemia (1) Syncope (2) Acute renal failure (3) Hypokalemia (4) Dementia (5) Dehydration (6) Anemia (7) Hypothyroid CBC/BMP: 03/26/17 0730 03/26/17 0730 Significant Findings Laboratory Tests Test 03/25/17 03/25/17 03/25/17 03/26/17 12:45 16:00 19:08 01:04 Red Blood Count 3.65 MIL/MM3 (4.00-5.30) Hemoglobin 11.0 GM/DL (11.6-15.3) Hematocrit 31.8 % (35.0-46.0) Acanthocytes OCC (NORMAL) Potassium Level 2.9 MEQ/L (3.5-5.1) Chloride Level 97 MEQ/L (98-107) Creatinine 1.20 MG/DL (0.50-1.00) Estimat Glomerular Filtration 51 ML/MIN (>89) Rate Random Glucose 136 MG/DL (74-106) Troponin I LESS THAN 0.02 LESS THAN 0.02 LESS THAN 0.02 NG/ML NG/ML NG/ML (0.02-0.05) (0.02-0.05) (0.02-0.05) Thyroid Stimulating Hormone 8.380 uIU/ML 3rd Gen (0.358-3.740) Prothrombin Time 11.8 SEC (9.8-11.6) Activated Partial 19.2 SEC Thromboplast Time (24.3-30.1) Free Triiodothyronine (T3) 1.49 PG/ML pg/dL (2.18-3.98) Test 03/26/17 07:30 Red Blood Count 3.40 MIL/MM3 (4.00-5.30) Hemoglobin 10.0 GM/DL (11.6-15.3) Hematocrit 29.6 % (35.0-46.0) Estimat Glomerular Filtration 73 ML/MIN (>89) Rate Random Glucose 127 MG/DL (74-106) Hospital Course This is a very pleasant 86-year-old black female who has been in her usual state of health. . 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 She does not remember any details or any syncopal episodes. She does not remember anything about passing out or having no symptoms of dizziness, drowsiness or extreme weakness. The patient was also noted to have the almost the exact same symptoms and problem back in December. Her workup was essentially negative and she has done fine since then. The patient denies any recent antibiotic use, has not been sick. Denies any fever. No headaches. No nausea. No vomiting. No diarrhea. No constipation. The patient does have a severely low potassium level. Pt. was a poor historian, forgetful, hx of dementia. No family at [facility], initially unable to contact daughter. Was evaluated in the ED. DIAGNOSTIC DATA WBC count 5.3, RBC 3.65, hemoglobin is 11, hematocrit is 31.8. Her differential is normal with occasional spur cells. PT/INR is pending. Chemistry, sodium is 136, potassium 2.9, chloride 97, carbon dioxide 27.4, amnion gap 12, BUN 15, creatinine 1.2, GFR 51, random glucose 136, her mag level is 1.9. Troponin is less than 0.02. TSH 8.380, albumin 3.4, total protein 6.7. IMAGING STUDIES Shows chest x-ray to be normal without cardiopulmonary disease. Head CT stable, noncontrast, no acute findings. Cervical spine CT no acute abnormality, small central disk protrusion at C3-C4 and C4-C5, uncertain chronicity. There is an 8 mm left thyroid nodule. . (1) Syncope (2) Dementia (3) Dehydration (4) Hypothyroid (5) Hypotension (6) Hypokalemia (7) Anemia (8) Acute renal failure (9) Macular degeneration, age related, nonexudative (10) Left thyroid nodule During the course of the hospitalization, the following took place: 86 elderly female admitted with syncope, dehydration, KAMI, dementia renal function improved Syncope workup ordered Was given IV fluids, potassium was replaced Renal function improved, Vital signs were monitored closely Neurological checks were done CUS results noted, no stenosis echo ok EF 60-65% Patient with history of dementia,had been admitted before for same in December.Still driving. Pt. lives alone called both number for daughter, no answer spoke to pt's niece, she lives down the street and can help CM for dc planning, hhc with PT Pt. needs more supervision, this was discussed with niece and with daughter when we finally got in touch. continued Namenda, Exelon TSH level elevated, low Free T3, pt. poss. hypothyroid has thyroid nodule, needs f/u as OP PT eval and tx, to ambulate-recommended HHC with PT CM consulted. Pepcid for GI prophylaxis Heparin for DVT prophylaxis Pt. improved, eating well, ambulated with minimal assist renal function improved, Discussed dc plan with family, questions answered, Recommended that pt. stop driving, more supervision at home, enc. PO intake Instructed to F/U PCP Diet-heart healthy Activity-as tolerated. HHC with PT set up by CM Pt Condition on Discharge: Stable Discharge Disposition: Disch w/ Home Health Serv Discharge Instructions DIET: Follow Instructions for: Heart Healthy Diet Activities you can perform: Weight Bearing as [place] Follow up Referrals: PCP Follow-up Continued Medications: Atorvastatin (Atorvastatin) 80 Mg Tab 80 MG PO HS Cholesterol Management #30 Ref 0 TAB Bimatoprost Opth Drops (Lumigan Opth Drops) 0.01% Soln 1 DROP EACH EYE HS Intraocular Pressure #1 Ref 0 BOTTLE Brimonidine-Timolol Opth Drops (Combigan Opth Drops) 0.2-0.5% Soln 1 DROP EACH EYE BID Glaucoma Ref 0 BOTTLE Clonazepam (Clonazepam) 0.5 Mg Tab 0.5 MG PO HS SLEEP #60 Ref 0 TAB Dorzolamide Opth Drops (Dorzolamide Opth Drops) 2% Soln 1 DROP EACH EYE BID Glaucoma #1 Ref 0 BOTTLE Ezetimibe (Zetia) 10 Mg Tab 10 MG PO DAILY #30 Ref 0 TAB Lisinopril-Hctz (Lisinopril-Hctz) 20-12.5 Mg Tab 1 TAB PO DAILY Blood Pressure Management #30 Ref 0 TAB Memantine (Namenda) 10 Mg Tab 20 MG PO DAILY Alzheimer Disease #30 Ref 0 TAB Rivastigmine Patch (Exelon Patch) 4.6 mg/24 hr Patch 1 PATCH T-DERMAL DAILY Dementia #30 Ref 0 PATCH Radha Thibodeaux March 27, 2017 19:26
[2017-03-27] MEDS ORDERED: FAMOTIDINE 20 MG TAB PO SCH (21:00)
== END 2017-03-27 17:04 | disposition home health service (06) | DRG 641 ==
LOC: NEPE 12:25 → NEDA 14:49 → N05A 16:14 → N05B 16:48
PROVIDERS: ADMIT Internal Medicine; ATTEND Internal Medicine
DX: E86.0 Dehydration (principal); N17.9 Acute kidney failure, unspecified; I95.9 Hypotension, unspecified; F03.90 Unspecified dementia, unspecified severity, without behavioral disturbance, psychotic disturbance, mood disturbance, and anxiety; D63.8 Anemia in other chronic diseases classified elsewhere; E87.6 Hypokalemia; I10 Essential (primary) hypertension; K21.9 Gastro-esophageal reflux disease without esophagitis; E03.9 Hypothyroidism, unspecified; E78.5 Hyperlipidemia, unspecified; F41.9 Anxiety disorder, unspecified; I25.10 Atherosclerotic heart disease of native coronary artery without angina pectoris; Z85.3 Personal history of malignant neoplasm of breast; E04.1 Nontoxic single thyroid nodule; H35.3190 Nonexudative age-related macular degeneration, unspecified eye, stage unspecified; R55 Syncope and collapse
CPT/HCPCS: 70450; 70544; 71010; 72125; 80048; 80053; 82550; 82948; 83735; 84443; 84481; 84484; 85025; 85610; 85730; 93005; 93306; 93880; J1644; J3480; J7030